=== PATIENT | female | born 1955 | race Caucasian/White ===

== ENCOUNTER → 2016-12-09 | Day surgery (SDC) | payer OTHER ==
[2016-12-03 15:21] VITALS: Ht 160 cm; Wt 81.8 kg
[~2016-12-09] VITALS: Ht 160 cm; Wt 81.8 kg
[~2016-12-09] MED LIST: ASCA500 PO; ATV/1 PO; CYAN100020 PO; FLUO20CA35 PO; LIDOCAINE HCL 2% 2 ML VIAL (20MG/ML) ONE; LINA1CAP PO; MIDAZOLAM HCL 1 MG/ML 2ML VIAL ONE; ONDANSETRON INJ 2 MG/ML 2 ML VIAL ONE; PANT40TA PO; PROPOFOL IV EMULSION 10 MG/ML 20 ML VIAL IV ONE; RISP0.258 PO; RISP0.5T10 PO; SUCR1TAB29 PO; TRAZ50TA35 PO
--- NOTE | 2016-12-09 12:56 | Endo History and Physical ---
History & Physical Date of Service: Dec 09, 2016. Chief Complaint: reflux Referring Physician: Dr. Joanne Harrington History of Present Illness 61 yo CF who presents for EGD secondary to GERD and dysphagia. Past Surgical History Hx Cardiac Surgery: No Hx Internal Defibrillator: No Hx Pacemaker: No Hx Abdominal Surgery: Yes (UTERINE ABLATION, D&C, YOVANI, TUBAL LIGATION) Hx of Implantable Prosthesis: No Hx Post-Op Nausea and Vomiting: Yes Hx Cancer Surgery: Yes (SKIN CANCER REMOVED FROM NOSE) Hx Thoracic Surgery: No Hx Orthopedic: Yes (LT/RT CTR) Hx Urinary Tract Surgery: No Family History None Social History Smoking Status: Current Every Day Smoker Hx Substance Use: No Hx Alcohol Use: No Allergies Coded Allergies: Ibuprofen (Verified Allergy, Unknown, CAUSES HEMORRHOID BLEEDING, 12/03/16) Current Medications Reported Home Medications Medications Dose Route/Sig Max Daily Dose Days Date Category Vitamin C (Ascorbic Acid) 500 Mg Tab 1 Tab PO QAM 12/03/16 Reported Vitamin B12 (Cyanocobalamin) 1,000 Mcg Tab 1 Tab PO QAM 12/03/16 Reported Trazodone (Trazodone HCl) 50 Mg Tab 50 Mg PO HS 12/03/16 Reported Ativan (Lorazepam) 1 Mg Tab 0.5 Tab PO Q6H PRN 12/03/16 Reported Protonix (Pantoprazole Sodium) 40 Mg Tab 40 Mg PO BID 12/03/16 Reported Carafate (Sucralfate) 1 Gm Tab 1 Gm PO TIDM 12/03/16 Reported Prozac (Fluoxetine HCl) 20 Mg Cap 2 Cap PO QAM 12/03/16 Reported Risperdal (Risperidone) 0.5 Mg Tab 0.5 Mg PO AFTERNOON 12/03/16 Reported Risperdal (Risperidone) 0.25 Mg Tab 0.25 Mg PO QAM 12/03/16 Reported Vital Signs Weight (Kilograms): 81.82 Height (Feet): 5 Height (Inches): 3 Date Time Temp Pulse Resp B/P Pulse Ox O2 Delivery O2 Flow Rate FiO2 12/09/16 11:55 36.9 66 20 152/89 93 Room Air Physical Exam General Appearance: WD/WN, no apparent distress Respiratory/Chest: Auscultation: breath sounds normal Cardiovascular: Heart Auscultation: RRR Abdomen: Bowel Sounds: normal Inspection & Palpation: soft, non-distended, no tenderness, guarding & rebound Assessment and Plan Assessment: 61 yo CF who presents for EGD secondary to GERD and dysphagia. Plan: Proceed with EGD.
--- NOTE | 2016-12-09 14:23 | GI REPORT ---
Procedure Date: 12/09/2016 1:24 PM Procedure: Upper GI endoscopy Indications: Dysphagia, Gastro-esophageal reflux disease Medicines: Monitored Anesthesia Care Complications: No immediate complications. Estimated Blood Loss: Estimated blood loss: none. Procedure: Pre-Anesthesia Assessment: - Prior to the procedure, a History and Physical was performed, and patient medications and allergies were reviewed. The patient's tolerance of previous anesthesia was also reviewed. The risks and benefits of the procedure and the sedation options and risks were discussed with the patient. All questions were answered, and informed consent was obtained. Prior Anticoagulants: The patient has taken no previous anticoagulant or antiplatelet agents. ASA Grade Assessment: II - A patient with mild systemic disease. After reviewing the risks and benefits, the patient was deemed in satisfactory condition to undergo the procedure. After obtaining informed consent, the endoscope was passed under direct vision. Throughout the procedure, the patient's blood pressure, pulse, and oxygen saturations were monitored continuously. The On-site loaner was introduced through the mouth, and advanced to the second part of duodenum. The upper GI endoscopy was accomplished without difficulty. The patient tolerated the procedure well. Findings: No endoscopic abnormality was evident in the esophagus to explain the patient's complaint of dysphagia. It was decided, however, to proceed with dilation of the entire esophagus. A guidewire was placed and the scope was withdrawn. Dilation was performed with a Savary dilator with no resistance at 48 Fr. Localized mild inflammation characterized by erythema was found in the gastric antrum. Biopsies were taken with a cold forceps for histology. The examined duodenum was normal. Impression: - No endoscopic esophageal abnormality to explain patient's dysphagia. Esophagus dilated. Dilated. - Gastritis. Biopsied. - Normal examined duodenum. Recommendation: - Resume previous diet. - Continue present medications. - Await pathology results. - Return to GI office as previously scheduled. Tad Martinez DO [place] 12/09/2016 2:22:48 PM This report has been signed electronically. Note Initiated On: 12/09/2016 1:24 PM I attest to the content of the Intraoperative Record and orders documented therein, exceptions below
--- NOTE | 2016-12-09 14:26 | Discharge Instructions ---
Endoscopy Patient Instructions Date / Procedure(s) Performed Dec 09, 2016. EGD Allergy Information Coded Allergies: Ibuprofen (Verified Allergy, Unknown, CAUSES HEMORRHOID BLEEDING, 12/03/16) Discharge Date / Findings Dec 09, 2016. Gastritis s/p biopsies Esophageal dilation to 16 mm Medication Instructions OK to resume all medications today as prescribed Reported Home Medications Medications Dose Route/Sig Max Daily Dose Days Date Category Vitamin C (Ascorbic Acid) 500 Mg Tab 1 Tab PO QAM 12/03/16 Reported Vitamin B12 (Cyanocobalamin) 1,000 Mcg Tab 1 Tab PO QAM 12/03/16 Reported Trazodone (Trazodone HCl) 50 Mg Tab 50 Mg PO HS 12/03/16 Reported Ativan (Lorazepam) 1 Mg Tab 0.5 Tab PO Q6H PRN 12/03/16 Reported Protonix (Pantoprazole Sodium) 40 Mg Tab 40 Mg PO BID 12/03/16 Reported Carafate (Sucralfate) 1 Gm Tab 1 Gm PO TIDM 12/03/16 Reported Prozac (Fluoxetine HCl) 20 Mg Cap 2 Cap PO QAM 12/03/16 Reported Risperdal (Risperidone) 0.5 Mg Tab 0.5 Mg PO AFTERNOON 12/03/16 Reported Risperdal (Risperidone) 0.25 Mg Tab 0.25 Mg PO QAM 12/03/16 Reported Provider Instructions Activity Restrictions - No exercising or heavy lifting for 24 hours. - Do not drink alcohol the day of the procedure. - Do not drive a car or operate machinery until the day after the procedure. - Do not make any important decisions or sign important papers in 24 hours after the procedure. Following Day: - Return to full activity which may include returning to work/school. Diet Start your diet with liquids and light foods (jello, soup, juice, toast). Then eat your usual diet if not nauseated. Treatment For Common After Affects For mild abdominal pain, bloating, or excessive gas: - Rest - Eat lightly - Lie on right side Follow-Up Information Follow-up with Dr. Joanne Harrington as scheduled Anesthesia Information What You Should Know You have had a procedure that required some medicine to reduce anxiety and discomfort. This treatment is called moderate sedation. After receiving the treatment, you may be sleepy, but you will be able to breathe on your own. The effects of the treatment may last for several hours. Follow these instructions along with Activity/Diet recommendations noted above: * Do NOT do anything where dizziness or clumsiness would be dangerous. * Rest quietly at home today, then you can be up and about tomorrow. * Have a responsible person stay with you the rest of today. * You may have had an I.V. today. If so, you may take the dressing off later today. Recommendations Call your doctor if: * Trouble breathing * Continuous vomiting for more than 24 hours * Temperature above 101 degrees * Severe abdominal pain or bloating * Pain not relieved by pain medicine ordered * There is increased drainage or redness from any incision * A large amount of rectal bleeding greater than 2-3 tablespoons. (If you had a polyp/s removed or have hemorrhoids, a small amount of blood - from the rectum is to be expected.) * You have any unanswered questions or concerns. IN THE EVENT OF A SERIOUS EMERGENCY, GO TO THE NEAREST EMERGENCY ROOM Your discharge instructions were prepared by provider Tad Stapleton. Patient Instructions Signature Page Elizabeth Mayorga Patient (or Guardian) Signature/Date: I have read and understand the instructions given to me by my caregivers. Caregiver/RN/Doctor Signature/Date: The above-named patient and/or guardian has received patient instructions on this date. + Original Patient Signature Page (only) stays with chart. Please make copy for patient.
--- NOTE | 2016-12-09 14:27 | Anesthesiology Progress Note ---
Anesthesia Post Op Note Date & Time Dec 09, 2016 at 14:26 Vital Signs Pain Intensity: 2 Vital Signs Past 12 Hours Date Time Temp Pulse Resp B/P Pulse Ox O2 Delivery O2 Flow Rate FiO2 12/09/16 14:15 66 16 131/82 94 Room Air 12/09/16 11:55 36.9 66 20 152/89 93 Room Air Notes Mental Status: alert / awake / arousable, participated in evaluation Pt Amnestic to Procedure: Yes Nausea / Vomiting: adequately controlled Pain: adequately controlled Airway Patency, RR, SpO2: stable & adequate BP & HR: stable & adequate Hydration State: stable & adequate Anesthetic Complications: no major complications apparent
[2016-12-09 14:45] VITALS: BP 169/100; PULSE 68; TEMP 36.9; O2SAT 94
== END | disposition home or self-care (01) ==
LOC: C.GI 11:19
PROVIDERS: ATTEND Internal Medicine
DX: R13.10 Dysphagia, unspecified (principal); K21.9 Gastro-esophageal reflux disease without esophagitis; K29.50 Unspecified chronic gastritis without bleeding; F41.9 Anxiety disorder, unspecified; F17.200 Nicotine dependence, unspecified, uncomplicated; Z68.32 Body mass index [BMI] 32.0-32.9, adult; Z90.89 Acquired absence of other organs; E66.9 Obesity, unspecified; Z98.51 Tubal ligation status; Z85.828 Personal history of other malignant neoplasm of skin; Z90.49 Acquired absence of other specified parts of digestive tract

== ENCOUNTER → 2017-04-16 | Outpatient (CLI) | payer OTHER ==
[~2017-04-16] MED LIST changes: -LIDOCAINE HCL 2% 2 ML VIAL (20MG/ML) ONE; -MIDAZOLAM HCL 1 MG/ML 2ML VIAL ONE; -ONDANSETRON INJ 2 MG/ML 2 ML VIAL ONE; -PROPOFOL IV EMULSION 10 MG/ML 20 ML VIAL IV ONE
[2017-04-16 13:37] LABS: BASO % 0.4 %; BASO ABS # 0.04 K/uL (0-0.2); COMPLETE YES; EOS % 1.9 %; HEMATOCRIT 40.1 % (37-47); IG% 0.1 %; LYMPH % 13.5 %; LYMPH ABS # 1.39 K/uL (1.2-3.4); MEAN CELL VOLUME 94.4 fL (80-100); MEAN CORPUSCULAR HEMOGLOBIN 31.3 pg (25-34); MEAN CORPUSCULAR HGB CONC 33.2 g/dl (32-36); MEAN PLATELET VOLUME 9.6 fL (7.4-10.4); MONO % 4.9 %; NEUT % 79.2 %; PLATELET COUNT 296 K/uL (130-400); RED BLOOD COUNT 4.25 M/uL (4.2-5.4); WHITE BLOOD COUNT 10.27 K/uL (4.8-10.8)
[2017-04-16 14:30] LABS: ALB/GLOB RATIO 0.9 (0.9-2); ALKALINE PHOSPHATASE 49 U/L (45-117); ALT/SGPT 18 U/L (12-78); AST/SGOT 14 U/L (15-37); BLOOD UREA NITROGEN 11 mg/dl (7-18); BUN/CREATININE RATIO 13.9 (10-20); CALCIUM 8.4 mg/dl (8.5-10.1); CARBON DIOXIDE 28 mmol/L (21-32); CHLORIDE 106 mmol/L (98-107); CHOLESTEROL 178 mg/dl (0-200); CHOLESTEROL/HDL RATIO 3.6; CREATININE 0.77 mg/dl (0.60-1.20); GLUCOSE 99 mg/dl (70-99); HDL CHOLESTEROL 50 mg/dl; LDL CHOLESTEROL CALCULATED 114 mg/dl; POTASSIUM 4.1 mmol/L (3.5-5.1); SODIUM 140 mmol/L (136-145); TRIGLYCERIDES 70 mg/dl (0-150); VERY LOW DENSITY LIPOPROT CALC 14 mg/dl
[2017-04-16 14:41] LABS: THYROID STIMULATING HORMONE 0.905 uIu/ml (0.300-4.500)
== END | disposition home or self-care (01) ==
LOC: C.LABMFLN 06:59
PROVIDERS: ATTEND Psychiatry & Neurology Geriatric Psychiatry
DX: Z51.81 Encounter for therapeutic drug level monitoring (principal); Z79.899 Other long term (current) drug therapy

== ENCOUNTER → 2017-05-27 | Day surgery (SDC) | payer OTHER ==
[2017-05-15 11:24] VITALS: Ht 160 cm; Wt 76.8 kg
[~2017-05-27] VITALS: Ht 160 cm; Wt 76.8 kg
[~2017-05-27] MED LIST changes: +LIDOCAINE HCL 2% 2 ML VIAL (20MG/ML) ONE; +PROPOFOL IV EMULSION 10 MG/ML 20 ML VIAL IV ONE; +SODIUM CHLORIDE 0.9% 500ML 500 ML IV ONE
[2017-05-27 15:01] VITALS: TEMP 36.9
--- NOTE | 2017-05-27 15:27 | Endo History and Physical ---
History & Physical Date of Service: May 27, 2017. Chief Complaint: Wt Loss, Ab pain Referring Physician: Joanne Harrington History of Present Illness 61 yo CF who presents for colonoscopy secondary to abdominal pain and weight loss. Past Surgical History Hx Cardiac Surgery: No Hx Internal Defibrillator: No Hx Pacemaker: No Hx Abdominal Surgery: Yes (UTERINE ABLATION, D&C, YOVANI, TUBAL LIGATION) Hx of Implantable Prosthesis: No Hx Post-Op Nausea and Vomiting: Yes Hx Cancer Surgery: Yes (SKIN CANCER REMOVED FROM NOSE) Hx Thoracic Surgery: No Hx Orthopedic: Yes (LT/RT CTR) Hx Urinary Tract Surgery: No Family History None Social History Smoking Status: Current Every Day Smoker Hx Substance Use: No Hx Alcohol Use: No Allergies Coded Allergies: Ibuprofen (Verified Allergy, Unknown, CAUSES HEMORRHOID BLEEDING, 05/15/17) Current Medications Reported Home Medications Medications Dose Route/Sig Max Daily Dose Days Date Category Linzess (Linaclotide) 145 Mcg Cap 1 Cap PO DAILY 05/27/17 Reported Vitamin C (Ascorbic Acid) 500 Mg Tab 1 Tab PO QAM 12/03/16 Reported Vitamin B12 (Cyanocobalamin) 1,000 Mcg Tab 1 Tab PO QAM 12/03/16 Reported Trazodone (Trazodone HCl) 50 Mg Tab 50 Mg PO HS 12/03/16 Reported Ativan (Lorazepam) 1 Mg Tab 0.5 Tab PO Q6H PRN 12/03/16 Reported Protonix (Pantoprazole Sodium) 40 Mg Tab 40 Mg PO BID 12/03/16 Reported Carafate (Sucralfate) 1 Gm Tab 1 Gm PO TIDM 12/03/16 Reported Prozac (Fluoxetine HCl) 20 Mg Cap 2 Cap PO QAM 12/03/16 Reported Risperdal (Risperidone) 0.5 Mg Tab 0.5 Mg PO AFTERNOON 12/03/16 Reported Risperdal (Risperidone) 0.25 Mg Tab 0.25 Mg PO QAM 12/03/16 Reported Vital Signs Weight (Kilograms): 76.82 Height (Feet): 5 Height (Inches): 3 Date Time Temp Pulse Resp B/P (MAP) Pulse Ox O2 Delivery O2 Flow Rate FiO2 05/27/17 15:01 36.9 84 18 109/72 (84) 100 Room Air Physical Exam General Appearance: WD/WN, no apparent distress Respiratory/Chest: Auscultation: breath sounds normal Cardiovascular: Heart Auscultation: RRR Abdomen: Bowel Sounds: normal Inspection & Palpation: soft, non-distended, no tenderness, guarding & rebound Assessment and Plan Assessment: 61 yo CF who presents for colonoscopy secondary to abdominal pain and weight loss. Plan: Proceed with colonoscopy.
--- NOTE | 2017-05-27 15:57 | Discharge Instructions ---
Endoscopy Patient Instructions Date / Procedure(s) Performed May 27, 2017. Colonoscopy Allergy Information Coded Allergies: Ibuprofen (Verified Allergy, Unknown, CAUSES HEMORRHOID BLEEDING, 05/15/17) Discharge Date / Findings May 27, 2017. Colon polyps Diverticulosis Internal hemorrhoids Medication Instructions OK to resume all medications today as prescribed Reported Home Medications Medications Dose Route/Sig Max Daily Dose Days Date Category Linzess (Linaclotide) 145 Mcg Cap 1 Cap PO DAILY 05/27/17 Reported Vitamin C (Ascorbic Acid) 500 Mg Tab 1 Tab PO QAM 12/03/16 Reported Vitamin B12 (Cyanocobalamin) 1,000 Mcg Tab 1 Tab PO QAM 12/03/16 Reported Trazodone (Trazodone HCl) 50 Mg Tab 50 Mg PO HS 12/03/16 Reported Ativan (Lorazepam) 1 Mg Tab 0.5 Tab PO Q6H PRN 12/03/16 Reported Protonix (Pantoprazole Sodium) 40 Mg Tab 40 Mg PO BID 12/03/16 Reported Carafate (Sucralfate) 1 Gm Tab 1 Gm PO TIDM 12/03/16 Reported Prozac (Fluoxetine HCl) 20 Mg Cap 2 Cap PO QAM 12/03/16 Reported Risperdal (Risperidone) 0.5 Mg Tab 0.5 Mg PO AFTERNOON 12/03/16 Reported Risperdal (Risperidone) 0.25 Mg Tab 0.25 Mg PO QAM 12/03/16 Reported Provider Instructions Activity Restrictions - No exercising or heavy lifting for 24 hours. - Do not drink alcohol the day of the procedure. - Do not drive a car or operate machinery until the day after the procedure. - Do not make any important decisions or sign important papers in 24 hours after the procedure. Following Day: - Return to full activity which may include returning to work/school. Diet Start your diet with liquids and light foods (jello, soup, juice, toast). Then eat your usual diet if not nauseated. Treatment For Common After Affects For mild abdominal pain, bloating, or excessive gas: - Rest - Eat lightly - Lie on right side Follow-Up Information Follow-up with Joanne Harrington as scheduled Anesthesia Information What You Should Know You have had a procedure that required some medicine to reduce anxiety and discomfort. This treatment is called moderate sedation. After receiving the treatment, you may be sleepy, but you will be able to breathe on your own. The effects of the treatment may last for several hours. Follow these instructions along with Activity/Diet recommendations noted above: * Do NOT do anything where dizziness or clumsiness would be dangerous. * Rest quietly at home today, then you can be up and about tomorrow. * Have a responsible person stay with you the rest of today. * You may have had an I.V. today. If so, you may take the dressing off later today. Recommendations Call your doctor if: * Trouble breathing * Continuous vomiting for more than 24 hours * Temperature above 101 degrees * Severe abdominal pain or bloating * Pain not relieved by pain medicine ordered * There is increased drainage or redness from any incision * A large amount of rectal bleeding greater than 2-3 tablespoons. (If you had a polyp/s removed or have hemorrhoids, a small amount of blood - from the rectum is to be expected.) * You have any unanswered questions or concerns. IN THE EVENT OF A SERIOUS EMERGENCY, GO TO THE NEAREST EMERGENCY ROOM Your discharge instructions were prepared by provider Tad Stapleton. Patient Instructions Signature Page Elizabeth Mayorga Patient (or Guardian) Signature/Date: I have read and understand the instructions given to me by my caregivers. Caregiver/RN/Doctor Signature/Date: The above-named patient and/or guardian has received patient instructions on this date. + Original Patient Signature Page (only) stays with chart. Please make copy for patient.
--- NOTE | 2017-05-27 16:01 | GI REPORT ---
Procedure Date: 05/27/2017 3:25 PM Procedure: Colonoscopy Indications: Generalized abdominal pain, Weight loss Medicines: Monitored Anesthesia Care Complications: No immediate complications. Estimated Blood Loss: Estimated blood loss: none. Procedure: Pre-Anesthesia Assessment: - Prior to the procedure, a History and Physical was performed, and patient medications and allergies were reviewed. The patient's tolerance of previous anesthesia was also reviewed. The risks and benefits of the procedure and the sedation options and risks were discussed with the patient. All questions were answered, and informed consent was obtained. Prior Anticoagulants: The patient has taken no previous anticoagulant or antiplatelet agents. ASA Grade Assessment: II - A patient with mild systemic disease. After reviewing the risks and benefits, the patient was deemed in satisfactory condition to undergo the procedure. After I obtained informed consent, the scope was passed under direct vision. Throughout the procedure, the patient's blood pressure, pulse, and oxygen saturations were monitored continuously. The scope was introduced through the anus and advanced to the terminal ileum. The colonoscopy was performed without difficulty. The patient tolerated the procedure well. The quality of the bowel preparation was good. The terminal ileum, ileocecal valve, appendiceal orifice, and rectum were photographed. Findings: Scattered small and large-mouthed diverticula were found in the entire colon. Three sessile polyps were found in the sigmoid colon. The polyps were 3 to 6 mm in size. These polyps were removed with a hot snare. Resection and retrieval were complete. Non-bleeding internal hemorrhoids were found during retroflexion. The hemorrhoids were small. Impression: - Diverticulosis in the entire examined colon. - Three 3 to 6 mm polyps in the sigmoid colon, removed with a hot snare. Resected and retrieved. - Non-bleeding internal hemorrhoids. Recommendation: - Resume previous diet. - Continue present medications. - Repeat colonoscopy for surveillance based on pathology results. - Return to primary care physician as previously scheduled. Tad Stapleton, DO 05/27/2017 4:01:07 PM This report has been signed electronically. Note Initiated On: 05/27/2017 3:25 PM I attest to the content of the Intraoperative Record and orders documented therein, exceptions below
--- NOTE | 2017-05-27 16:12 | Anesthesiology Progress Note ---
Anesthesia Post Op Note Date & Time May 27, 2017 at 16:12 Vital Signs Pain Intensity: 3 Vital Signs Past 12 Hours Date Time Temp Pulse Resp B/P (MAP) Pulse Ox O2 Delivery O2 Flow Rate FiO2 05/27/17 15:59 69 20 131/74 (93) 96 Room Air 05/27/17 15:01 36.9 84 18 109/72 (84) 100 Room Air Notes Mental Status: alert / awake / arousable, participated in evaluation Pt Amnestic to Procedure: Yes Nausea / Vomiting: adequately controlled Pain: adequately controlled Airway Patency, RR, SpO2: stable & adequate BP & HR: stable & adequate Hydration State: stable & adequate Anesthetic Complications: no major complications apparent
[2017-05-27 16:29] VITALS: BP 134/74; PULSE 63; O2SAT 93
== END | disposition home or self-care (01) ==
LOC: C.GI 14:32
PROVIDERS: ATTEND Internal Medicine
DX: R10.84 Generalized abdominal pain (principal); R63.4 Abnormal weight loss; D12.5 Benign neoplasm of sigmoid colon; K57.30 Diverticulosis of large intestine without perforation or abscess without bleeding; K64.8 Other hemorrhoids; F17.200 Nicotine dependence, unspecified, uncomplicated; Z85.828 Personal history of other malignant neoplasm of skin

== ENCOUNTER → 2017-05-29 | Outpatient (CLI) | payer OTHER ==
[~2017-05-29] MED LIST changes: -LIDOCAINE HCL 2% 2 ML VIAL (20MG/ML) ONE; -PROPOFOL IV EMULSION 10 MG/ML 20 ML VIAL IV ONE; -SODIUM CHLORIDE 0.9% 500ML 500 ML IV ONE
== END | disposition home or self-care (01) ==
LOC: C.PAPS 13:28
PROVIDERS: ATTEND Physician Assistant
DX: Z12.4 Encounter for screening for malignant neoplasm of cervix (principal)

== ENCOUNTER → 2017-09-08 | Outpatient (CLI) | payer OTHER ==
[~2017-09-08] MED LIST changes: -ASCA500 PO; -LINA1CAP PO; +POTASSIUM PO; -SUCR1TAB29 PO
[2017-09-08 18:39] LABS: PTT PATIENT 28.2 SECONDS (21.0-31.0)
== END | disposition home or self-care (01) ==
LOC: C.LABMFLN 16:12
PROVIDERS: ATTEND Physician Assistant
DX: Z01.818 Encounter for other preprocedural examination (principal)

== ENCOUNTER 2017-09-15 06:03 | Inpatient (IN) | payer OTHER ==
[2017-09-01 11:09] VITALS: BMI 27.0
--- NOTE | 2017-09-01 11:46 | PAT Medication Instructions ---
Service Date Sep 01, 2017. Current Home Medication List Cyanocobalamin (Vitamin B12), 1 TAB PO QAM Fluoxetine (Prozac), 2 CAP PO QAM Lorazepam (Ativan), 0.5 TAB PO Q6H PRN for Anxiety Pantoprazole (Protonix), 40 MG PO BID Risperidone (Risperdal), 0.25 MG PO QAM Risperidone (Risperdal), 0.5 MG PO AFTERNOON Trazodone Hcl (Trazodone), 50-100 MG PO HS [Potassium ], 99 MG PO QAM Medication Instructions For Your Scheduled Surgery - Hold the following medications the morning of surgery: [Potassium ], 99 MG PO QAM Cyanocobalamin (Vitamin B12), 1 TAB PO QAM - Take the following medications the morning of surgery with a sip of water: Pantoprazole (Protonix), 40 MG PO BID Risperidone (Risperdal), 0.25 MG PO QAM Lorazepam (Ativan), 0.5 TAB PO Q6H PRN for Anxiety (if needed) Fluoxetine (Prozac), 2 CAP PO QAM - Take the following medications as scheduled the night before surgery: Trazodone Hcl (Trazodone), 50-100 MG PO HS Risperidone (Risperdal), 0.5 MG PO AFTERNOON Lorazepam (Ativan), 0.5 TAB PO Q6H PRN for Anxiety (if needed) Pantoprazole (Protonix), 40 MG PO BID If you have any questions please call us at [phone] or [phone] or [phone]
--- NOTE | 2017-09-01 12:52 | DIAGNOSTIC IMAGING REPORT ---
CHEST 2 VIEWS ROUTINE HISTORY: Preop. COMPARISON: Chest CT 03/12/2016. FINDINGS: The heart is normal in size. No pleural effusions. No pneumothorax. Mild upper lobe predominant reticulonodular interstitial thickening remains unchanged. No new focal lung consolidations. No evidence for pulmonary edema. IMPRESSION: Stable mild chronic upper lobe predominant reticulonodular interstitial thickening. No new focal lung consolidations. Electronically signed by: Kenyon Ross M.D. 09/01/2017 12:50 PM Dictated Date/Time: 09/01/2017 12:48 PM
[2017-09-01 13:29] LABS: BASO % 0.3 %; BASO ABS # 0.03 K/uL (0-0.2); EOS % 0.3 %; EOS ABS # 0.03 K/uL (0-0.5); HEMOGLOBIN 15.1 g/dL (12.0-16.0); IG# 0.01 K/uL (0.00-0.02); LYMPH % 26.2 %; LYMPH ABS # 2.75 K/uL (1.2-3.4); MEAN CELL VOLUME 93.4 fL (80-100); MEAN CORPUSCULAR HEMOGLOBIN 32.1 pg (25-34); MEAN CORPUSCULAR HGB CONC 34.3 g/dl (32-36); MEAN PLATELET VOLUME 9.9 fL (7.4-10.4); MONO ABS # 0.74 K/uL (0.11-0.59); NEUT % 66.1 %; NEUT ABS # 6.95 K/uL (1.4-6.5); PLATELET COUNT 283 K/uL (130-400); RED CELL DISTRIBUTION WIDTH CV 14.5 % (11.5-14.5); RED CELL DISTRIBUTION WIDTH SD 49.9 fL (36.4-46.3); WHITE BLOOD COUNT 10.51 K/uL (4.8-10.8)
[2017-09-01 13:41] LABS: CREATININE 0.76 mg/dl (0.60-1.20); POTASSIUM 3.8 mmol/L (3.5-5.1)
[2017-09-15] VITALS (9 sets, daily range): BP systolic 100–143; BP diastolic 62–83; PULSE 60–97; TEMP 36.3–36.7; O2SAT 82–97; Ht 160 cm; Wt 70.3 kg
[~2017-09-15] VITALS: Ht 160 cm; Wt 70.3 kg
[~2017-09-15 06:03] MED LIST changes: +CEFAZOLIN 1000MG IV PUSH 5 ML IV SCH; +LACTATED RINGER'S 1000ML 1,000 ML IV SCH
[2017-09-15] MEDS ORDERED: VITACAP26 PO (06:17)
[2017-09-15] MEDS ORDERED: MIDAZOLAM HCL 1 MG/ML 2ML VIAL ONE (06:41)
[2017-09-15] MEDS ORDERED: FENTANYL CITRATE INJ 50 MCG/1 ML 2 ML VIAL ONE ×5 (06:41→09:51)
[2017-09-15] MEDS ORDERED: BACITRACIN 50000 UNIT VIAL ONE (07:00)
[2017-09-15] MEDS ORDERED: BUPIVACAINE/EPINEPHRINE 0.5% MPF 1:200,000 30 ML VIAL ONE (07:00)
--- NOTE | 2017-09-15 07:23 | History & Physical Bridge Note ---
H&P Re-Evaluation Bridge Note: I have examined the patient, reviewed the History & Physical and in the interval since the performance of the History & Physical I have noted the following changes of clinical significance: No changes noted
--- NOTE | 2017-09-15 07:24 | History and Physical ---
History & Physical Date Sep 15, 2017. Chief Complaint Back and leg pain History of Present Illness The patient is a 61 year old female with complaints of back and leg pain Additional History Hepatic Disease: No Endocrine Disorder: No Kidney Disease: No Hypertension: No Heart Disease: No Bleeding Tendencies: No Infectious Diseases: No Allergies Coded Allergies: Ibuprofen (Verified Allergy, Unknown, CAUSES HEMORRHOID BLEEDING, 09/15/17) Nickel (Verified Allergy, Unknown, RASH AND IRRITATION WITH NICKEL EARRINGS, 09/15/17) Home Medications Scheduled Cyanocobalamin (Vitamin B12), 1 TAB PO QAM Fluoxetine (Prozac), 2 CAP PO QAM Pantoprazole (Protonix), 40 MG PO BID Risperidone (Risperdal), 0.25 MG PO QAM Risperidone (Risperdal), 0.5 MG PO AFTERNOON Trazodone Hcl (Trazodone), 50-100 MG PO HS Vitamins C & E (Vitamin C), 2 CAP PO DAILY [Potassium ], 99 MG PO QAM Scheduled PRN Lorazepam (Ativan), 0.5 TAB PO Q6H PRN for Anxiety Physical Examination Skin: warm/dry, no rash Eyes: normal inspection, EOMI, sclerae normal ENT: normal ENT inspection, pharynx normal Head: normocephalic, atraumatic Neck: supple, no adenopathy, trachea midline Respiratory/Chest: lungs clear, normal breath sounds, no respiratory distress Cardiovascular: regular rate, rhythm, no edema, no murmur Abdomen / GI: normal bowel sounds, non tender Back: normal inspection Extremities: normal inspection, normal range of motion Neurologic/Psych: no motor/sensory deficits, alert, normal reflexes, oriented x 3 Diagnosis Lumbar spinal stenosis Plan of Treatment L2 to L5 decompression and fusion
[2017-09-15] MEDS ORDERED: HYDROmorphone INJ 2 MG/ML SYR/VIAL ONE ×3 (08:02→09:55)
[2017-09-15] MEDS ORDERED: FLOSEAL HEMOSTATIC MATRIX 10ML TOP ONE (09:35)
[2017-09-15] MEDS ORDERED: ROCURONIUM BROMIDE 10 MG/ML 5 ML VIAL IV ONE (09:36)
[2017-09-15] MEDS ORDERED: LIDOCAINE HCL 2% 2 ML VIAL (20MG/ML) ONE (09:36)
[2017-09-15] MEDS ORDERED: PROPOFOL IV EMULSION 10 MG/ML 20 ML VIAL IV ONE (09:36)
[2017-09-15] MEDS ORDERED: DEXAMETHASONE SOD INJ 4 MG/ML VIAL ONE (09:36)
[2017-09-15] MEDS ORDERED: ONDANSETRON INJ 2 MG/ML 2 ML VIAL ONE ×2 (09:36→09:57)
[2017-09-15] MEDS ORDERED: EpHEDrine SULFATE 50MG/5ML SYR ONE (09:57)
[2017-09-15] MEDS ORDERED: NEOSTIGMINE METHYLSULFATE 1 MG/ML 10ML VIAL ONE (09:57)
[2017-09-15] MEDS ORDERED: GLYCOPYRROLATE INJ 0.2 MG/ML VIAL ONE (09:57)
[2017-09-15] MEDS ORDERED: SODIUM CHLORIDE 0.9% 1000ML 1,000 ML IV SCH (10:08)
--- NOTE | 2017-09-15 10:08 | [facility] Operative Report ---
Operative Report Operative Date Sep 15, 2017. Pre-Operative Diagnosis Lumbar Spinal Stenosis Post-Operative Diagnosis Lumbar Spinal Stenosis Procedure(s) Performed #1 lumbar decompression medial facetectomies foraminotomies L2 3 L3 4 L4 5. #2 posterior spinal fusion L2 3 L3 4 L4 5. #3 patient posterior segmental instrumentation L2 to L5. #4 interbody fusion L3 4 L4 5. #5 placement peek cage 7 x 22 mm at L3 4 and 11 x 22 mm at L4 5. #6 placement of locally harvested morcellized autograft in the posterior gutters. #7 patient anesthesiologist sponge, mass graft in the posterior lateral gutters and osteotome and bone graft in the interbody spaces. Surgeon Dr. Whelan Acid Bleacher Surgeon(s) none Estimated Blood Loss 125 cc Findings Severe spinal stenosis Specimens none per surgeon Description of Procedure Patient was met with preoperatively case discussed all questions addressed. After informed consent obtained patient was taken to the operative suite underwent intubation and placed in a prone position on the Mino table on top of the Kevin frame. All bony prominences were well-padded I suspect to ensure no external pressure placed upon them. This point lumbar spines prepped and draped in normal sterile fashion. Sharp dissection with the assistance of Bovie cautery was performed onto an exposing the lamina and transverse processes of L2-L3 L4 5 bilaterally. From a caudal to cephalad fashion a complete laminectomy of all 4 L3 and L2 was performed dressings for lateral recess and foraminal stenosis. Pedicle screws and placed in L2-L3 L4-L5 bilaterally with the assistance of fluoroscopy and the properly sized chanell placed. Through a trans-foraminal approach and left complete discectomy of L4- L5 was performed and endplates curetted to subcortical bleeding bone in a 11 x 22 mm peek cage was then tapped into position. I then proceeded L3 4 and again through a trans-foraminal approach complete discectomy was performed endplates curetted to subcortical bleeding bone and a 7 x 11 mm peek Cage filled with osteal bone graft tapped into position. The rods were then locked and final position bilaterally. The transverse processes of L2-L3 L4-L5 bur to subcortical bleeding bone. Infuse sponges sponge mass graft locally harvested morcellized Was placed in the posterior lateral gutters. 15 round RASHID drain inserted. The incision was then closed with 1 Vicryl in the fascia 2-0 Vicryl subcutaneously and 4-0 Monocryl for final skin closure Steri-Strips dressings placed. Patient was taken to PACU stable condition. I attest to the content of the Intraoperative Record and any orders documented therein. Any exceptions are noted below.
--- NOTE | 2017-09-15 10:11 | DIAGNOSTIC IMAGING REPORT ---
LUMBAR SPINE, INTRAOPERATIVE FLUOROSCOPY HISTORY: L2-L5 decompression and fusion. FLUOROSCOPY TIME: 26 seconds. FINDINGS: Intraoperative fluoroscopy was provided for the lumbar spine. 2 fluoroscopic spot images were obtained. L2-L5 posterior decompression and fusion with pedicle screws and rods. The hardware appears intact. IMPRESSION: Fluoroscopy provided for a L2-L5 posterior decompression and fusion.. Electronically signed by: Kenyon Ross M.D. 09/15/2017 10:09 AM Dictated Date/Time: 09/15/2017 10:09 AM
[2017-09-15] MEDS ORDERED: LABETALOL HCL IV 5 MG/ML 20ML IV PRN (10:15)
[2017-09-15] MEDS ORDERED: MAGNESIUM HYDROXIDE SUSP 30 ML UDC PO PRN (10:15)
[2017-09-15] MEDS ORDERED: EpHEDrine SULFATE INJ 50 MG/ML AMP IV PRN (10:15)
[2017-09-15] MEDS ORDERED: MEPERIDINE HCL 25 MG/ML CARP IV PRN (10:15)
[2017-09-15] MEDS ORDERED: ACETAMINOPHEN 500 MG TAB PO PRN (10:15)
[2017-09-15] MEDS ORDERED: BISACODYL 10 MG SUPP PR PRN (10:15)
[2017-09-15] MEDS ORDERED: LORAZEPAM INJ 0.5 MG in SYRINGE 0.75 ML IV PRN (10:15)
[2017-09-15] MEDS ORDERED: DO NOT ADMINISTER PNEUMOCOCCAL VACCINE PRN (10:15)
[2017-09-15] MEDS ORDERED: FENTANYL CITRATE INJ 50 MCG/1 ML 2 ML VIAL IV PRN (10:15)
[2017-09-15] MEDS ORDERED: METOCLOPRAMIDE HCL INJ 5 MG/ML 2 ML VIAL IV PRN (10:15)
[2017-09-15] MEDS ORDERED: ACETAMINOPHEN IV 100 ML IV PRN (10:15)
[2017-09-15] MEDS ORDERED: HYDROmorphone INJ 1 MG/ML SYR IV PRN (10:15)
[2017-09-15] MEDS ORDERED: ALUMINUM/MAGNESIUM SUSP 30 ML UDC PO PRN (10:15)
[2017-09-15] MEDS ORDERED: PROMETHAZINE HCL INJ 12.5 MG in SODIUM CHLORIDE 0.9% 50ML 50 ML IV PRN (10:15)
[2017-09-15] MEDS ORDERED: hydrOXYzine HCL 25 MG TAB PO PRN (10:15)
[2017-09-15] MEDS ORDERED: DO NOT ADMINISTER FLU VACCINE PRN (10:15)
[2017-09-15] MEDS ORDERED: SOD PHOSPHATE/SOD BIPHOSPHATE ENEMA 132 ML BTL PR PRN (10:15)
[2017-09-15] MEDS ORDERED: ATROPINE SULFATE 0.1 MG/ML 5ML SYR IV PRN (10:15)
[2017-09-15] MEDS ORDERED: ONDANSETRON INJ 2 MG/ML 2 ML VIAL IV PRN ×2 (10:15)
[2017-09-15] MEDS ORDERED: FAMOTIDINE 20 MG TAB PO PRN (10:15)
[2017-09-15] MEDS ORDERED: NALOXONE HCL 0.4 MG/1 ML VIAL/CARP IV PRN ×2 (10:15)
[2017-09-15] MEDS ORDERED: HYDROmorphone HCL 0.5MG/ML 50 ML CASSETTE ONE (10:23)
[2017-09-15] MEDS: HYDROmorphone HCL 0.5MG/ML 50 ML CASSETTE IV PRN ×2 (12:36→23:06)
[2017-09-15] MEDS: SODIUM CHLORIDE 0.9% 1000ML 1,000 ML IV SCH ×2 (13:28→19:16)
[2017-09-15] MEDS ORDERED: RISPERIDONE 0.5 MG TAB PO SCH (14:00)
[2017-09-15] MEDS: CEFAZOLIN IV 1,000 MG in SYRINGE 0 ML IV SCH (19:09)
[2017-09-15] MEDS: TRAZODONE HCL 50 MG TAB PO SCH (21:23)
[2017-09-15] MEDS: DOCUSATE SODIUM/SENNA 50/8.6MG TAB PO SCH (21:24)
[2017-09-15] MEDS: PANTOprazole SOD 40 MG TAB PO SCH (21:24)
[2017-09-16] VITALS: O2SAT 93
[2017-09-16] MEDS: SODIUM CHLORIDE 0.9% 1000ML 1,000 ML IV SCH (02:00)
[2017-09-16] MEDS: CEFAZOLIN IV 1,000 MG in SYRINGE 0 ML IV SCH (02:00)
[2017-09-16 03:25] VITALS: BP 128/76; PULSE 74; TEMP 36.6; O2SAT 97
[2017-09-16] MEDS ORDERED: DC PCA ONE (06:00)
[2017-09-16] MEDS ORDERED: NURSING VERBAL MED ORDER ONE ×2 (06:15→09:30)
[2017-09-16 06:58] LABS: BASO % 0.1 %; BASO ABS # 0.01 K/uL (0-0.2); EOS % 0.1 %; EOS ABS # 0.01 K/uL (0-0.5); HEMATOCRIT 36.6 % (37-47); HEMOGLOBIN 12.1 g/dL (12.0-16.0); IG# 0.07 K/uL (0.00-0.02); LYMPH % 11.2 %; LYMPH ABS # 1.79 K/uL (1.2-3.4); MEAN CELL VOLUME 94.3 fL (80-100); MEAN CORPUSCULAR HEMOGLOBIN 31.2 pg (25-34); MEAN CORPUSCULAR HGB CONC 33.1 g/dl (32-36); MEAN PLATELET VOLUME 9.6 fL (7.4-10.4); MONO % 9.3 %; MONO ABS # 1.49 K/uL (0.11-0.59); NEUT % 78.9 %; NEUT ABS # 12.58 K/uL (1.4-6.5); PLATELET COUNT 285 K/uL (130-400); RED CELL DISTRIBUTION WIDTH CV 14.5 % (11.5-14.5); RED CELL DISTRIBUTION WIDTH SD 49.5 fL (36.4-46.3); WHITE BLOOD COUNT 15.95 K/uL (4.8-10.8)
[2017-09-16 07:29] VITALS: BP 129/81; PULSE 72; TEMP 36.5; O2SAT 94
[2017-09-16 07:30] LABS: CALCIUM 8.8 mg/dl (8.5-10.1); CREATININE 0.49 mg/dl (0.60-1.20); POTASSIUM 3.6 mmol/L (3.5-5.1)
[2017-09-16] MEDS: OXYCODONE HCL IR 5 MG TAB (IMMEDIATE RELEASE) PO PRN ×4 (07:33→23:53)
[2017-09-16] MEDS: FLUOXETINE HCL 20 MG CAP PO SCH (07:34)
[2017-09-16] MEDS: PANTOprazole SOD 40 MG TAB PO SCH ×2 (07:34→20:17)
[2017-09-16] MEDS: RISPERIDONE 0.5 MG TAB PO SCH ×2 (08:48→15:38)
[2017-09-16] MEDS ORDERED: RXC5 PO (10:51)
--- NOTE | 2017-09-16 10:52 | Discharge Instructions ---
Discharge Instructions Date of Service Sep 16, 2017. Admission Reason for Admission: Lumbar Spinal Stenosis Discharge Discharge Diagnosis / Problem: lumbar stenosis Discharge Goals Goal(s): Improve function Activity Recommendations Activity Limitations: per Instructions/Follow-up section . Instructions / Follow-Up Instructions / Follow-Up ACTIVITY RECOMMENDATIONS: SELF CARE INSTRUCTIONS AFTER THORACIC/LUMBAR FUSIONS 1. You may walk to your tolerance. It is good exercise for your legs and back. Expect some back and intermittent leg aches and pains. 2. You may perform "counter-top" level activities (make a sandwich, maris with a project, etc.). 3. No bending or lifting of more than 10 pounds or back twisting of any nature (roll like a log when turning in bed). 4. You may ride in a car for 20-30 minutes at a time. No driving until after your first visit with your doctor. 5. Frequent changes of position and restricting sitting to 30 minutes at a time will help limit the amount of back spasms and stiffness you may experience. 6. You may discontinue the use of ambulatory aids (cane, crutches, etc.) once your strength and confidence allow. 7. You may insurance analyst the shower and let water strike your incision when you arrive home at least once daily. Do not take a tub bath, sit in a hot tub or go into a swimming pool until after your first recheck in the office. SPECIAL CARE INSTRUCTIONS: VERY IMPORTANT TO READ AND REVIEW A. Your surgical incision has been closed with a cosmetic suture under the skin that will dissolve in about 6 weeks. In 14 days, you can use a pair of clean scissors and cut the suture that is left outside of the skin at the ends of your incision. 1. The small skin tapes can be removed 7 days after surgery if they have not fallen off by that point. 2. You may keep the wound open to air as much as possible to promote healing after post-op day number 5 unless told otherwise by your doctor. 3. If you think the wound looks like it is becoming infected (redness or worsening drainage) and/or you are experiencing fever, chill or worsening back pain and muscle spasms, contact the office so that we may evaluate you as soon as possible. B. Complications are uncommon, but please contact us if you have any signs or symptoms of: 1. wound infection (fever higher than 102.5 degrees F, redness, separation of wound, drainage, or increasing pain from the incision) 2. blood clots in legs (pain, swelling, redness and warmth in legs) 3. urinary tract infection (fever higher than 102.5 degrees F, burning upon urination or increased frequency of urination) 4. nerve problems (inability to walk on your toes or heels, numbness, loss of bowel or bladder control) 5. any other symptoms that concern you C. Please call the office at if you have any concerns or questions about your operation or recovery. D. No smoking! Smoking drastically decreases the chance of a solid fusion. E. Do not take any anti-inflammatory medications (Indocin, Advil, Motrin, Aspirin, Naprosyn, etc.) as these may inhibit the chance of a solid fusion. Tylenol is okay to take for pain. MANAGING PAIN AFTER SPINAL SURGERY 1. Narcotic medication is intended for short-term use and will be provided for surgical pain. Surgical pain usually lasts for a period of 4-6 weeks. Narcotic medication includes Percocet, Vicodin, Darvocet, Tylenol #3 or Lortab. 2. Longer-term pain is more appropriately treated with non-narcotic medication such as Tylenol ES. 3. Muscle spasm is not appropriately treated with narcotics. Muscle relaxers such as Soma, Flexeril or Skelaxin can be used along with Tylenol ES. 4. Remember that we all live with some "aches and pains". This is not unusual or uncommon after an injury or as we get older. a. Back pain is expected and may include muscle spasms for 4 to 6 weeks after surgery. The pain should gradually improve. If the pain worsens for no apparent reason, please contact the office. b. Intermittent leg pain may also be experienced and should not be concerned about unless it worsens for no apparent reason. If so, please contact the office. 5. We will provide appropriate medication within the normal guidelines of their prescribed use. We will also be very cautious and aware of potential abuse and extended duration of patients' medication needs. a. Pain medications are for your comfort and to assist with sleep and rest so that the tissue can heal. They are not provided in order to return to normal activity and should not be used through the day. To do so or worsening pain at night can result from ongoing tissue damage and development of tolerance to the prescribed medicine. 6. Please allow 2-3 days to process refills. Prescriptions will not be mailed but must be picked up at the office. FOLLOW UP VISIT: Keep your scheduled follow-up appointment. Any questions, please call the office at . Current Hospital Diet Patient's current hospital diet: Regular Diet Discharge Diet Recommended Diet: Regular Diet Procedures Procedures Performed: #1 lumbar decompression medial facetectomies foraminotomies L2 3 L3 4 L4 5. #2 posterior spinal fusion L2 3 L3 4 L4 5. #3 patient posterior segmental instrumentation L2 to L5. #4 interbody fusion L3 4 L4 5. #5 placement peek cage 7 x 22 mm at L3 4 and 11 x 22 mm at L4 5. #6 placement of locally harvested morcellized autograft in the posterior gutters. #7 patient anesthesiologist sponge, mass graft in the posterior lateral gutters and osteotome and bone graft in the interbody spaces. Pending Studies Studies pending at discharge: no Medical Emergencies . Who to Call and When: Medical Emergencies: If at any time you feel your situation is an emergency, please call 911 immediately. . Non-Emergent Contact Non-Emergency issues call your: Primary Care Provider . "Provider Documentation" section prepared by Daniel Whelan. . VTE Core Measure Inpt VTE Proph given/why not?: Sameer Allen, [facility]
--- NOTE | 2017-09-16 12:55 | Anesthesiology Progress Note ---
Anesthesia Post Op Note Date & Time Sep 16, 2017 at 12:52 Vital Signs Pain Intensity: 8.0 Vital Signs Past 12 Hours Date Time Temp Pulse Resp B/P (MAP) Pulse Ox O2 Delivery O2 Flow Rate FiO2 09/16/17 09:36 Room Air 09/16/17 07:29 36.5 72 19 129/81 (97) 94 Room Air 09/16/17 03:25 36.6 74 16 128/76 (93) 97 Nasal Cannula 2.0 Notes Mental Status: alert / awake / arousable, participated in evaluation Pt Amnestic to Procedure: Yes Nausea / Vomiting: adequately controlled Pain: adequately controlled Airway Patency, RR, SpO2: stable & adequate BP & HR: stable & adequate Hydration State: stable & adequate Awake, alert, pain manageable with medication. Rates as 7. VSS. No c/o with anesthesia service.
--- NOTE | 2017-09-16 13:27 | Progress Note ---
Progress Note Date of Service Sep 16, 2017. Progress Note Patient's pain is controlled. She states her leg pain is improved. Vital signs are stable. RASHID drain decreasing appropriate. An exam she is in chair at bedside. She has excellent strength testing. Assessment status post multilevel lumbar decompression fusion implant this time we'll continue physical therapy and consider possible home Thursday with home health if covered by her insurance.
[2017-09-16] MEDS: HYDROmorphone INJ 0.5 MG/0.5 ML SYR IV PRN (14:18)
[2017-09-16 15:00] VITALS: BP 147/83; PULSE 71; TEMP 36.9; O2SAT 92
[2017-09-16] MEDS: LORAZEPAM 0.5 MG TAB PO PRN ×2 (19:08→20:17)
[2017-09-16] MEDS: TRAZODONE HCL 50 MG TAB PO SCH (20:17)
[2017-09-16] MEDS: DOCUSATE SODIUM/SENNA 50/8.6MG TAB PO SCH (20:17)
[2017-09-16 23:00] VITALS: BP 129/87; PULSE 94; TEMP 37.1; O2SAT 95
[2017-09-17] MEDS: OXYCODONE HCL IR 5 MG TAB (IMMEDIATE RELEASE) PO PRN ×4 (04:14→20:23)
[2017-09-17] MEDS: POLYETHYLENE (MIRALAX) 17 GM PACK PO SCH ×3 (05:34→17:30)
[2017-09-17 07:11] VITALS: BP 149/81; PULSE 84; TEMP 36.8; O2SAT 91
[2017-09-17] MEDS: RISPERIDONE 0.5 MG TAB PO SCH ×2 (07:50→13:36)
[2017-09-17] MEDS: FLUOXETINE HCL 20 MG CAP PO SCH (07:50)
[2017-09-17] MEDS: PANTOprazole SOD 40 MG TAB PO SCH ×2 (07:50→20:25)
[2017-09-17] MEDS: HYDROmorphone INJ 1 MG/ML SYR IV PRN ×4 (07:54→21:19)
--- NOTE | 2017-09-17 12:08 | Progress Note ---
Progress Note Date of Service Sep 17, 2017. Progress Note Patient's pain is controlled. She feels her leg pain is improved. She is tolerating physical therapy well. Vital signs are stable. RASHID drain decreasing appropriately. Assessment status post lumbar decompression fusion. Kalyn this time will continue with intubation as tolerated anticipate home tomorrow.
[2017-09-17 15:07] VITALS: BP 138/79; PULSE 73; TEMP 36.9; O2SAT 93
[2017-09-17] MEDS: LORAZEPAM 0.5 MG TAB PO PRN (19:42)
[2017-09-17] MEDS: DOCUSATE SODIUM/SENNA 50/8.6MG TAB PO SCH (20:24)
[2017-09-17] MEDS: TRAZODONE HCL 50 MG TAB PO SCH (20:25)
[2017-09-17 23:55] VITALS: BP 133/84; PULSE 81; TEMP 36.9; O2SAT 93
[2017-09-18] MEDS: POLYETHYLENE (MIRALAX) 17 GM PACK PO SCH ×3 (00:08→11:18)
[2017-09-18] MEDS: OXYCODONE HCL IR 5 MG TAB (IMMEDIATE RELEASE) PO PRN ×4 (00:12→15:05)
[2017-09-18] MEDS: HYDROmorphone INJ 0.5 MG/0.5 ML SYR IV PRN ×3 (03:20→12:21)
[2017-09-18 07:17] VITALS: BP 115/75; PULSE 82; TEMP 36.7; O2SAT 93
[2017-09-18] MEDS: FLUOXETINE HCL 20 MG CAP PO SCH (07:57)
[2017-09-18] MEDS: RISPERIDONE 0.5 MG TAB PO SCH ×2 (07:58→15:05)
[2017-09-18] MEDS: PANTOprazole SOD 40 MG TAB PO SCH (07:58)
--- NOTE | 2017-09-18 13:32 | Discharge Summary ---
Orthopedic Discharge Summary Admission Date/Reason Sep 15, 2017 at 07:32 Lumbar Spinal Stenosis. Discharge Date/Disposition Sep 18, 2017 Home with services Diagnosis Principal Diagnosis: Lumbar spinal stenosis Admission Physical Exam As per Admitting History & Physical. Hospital Course Patient underwent lumbar decompression and fusion. She tolerated this well was taken to the orthopedic floor postoperative. Postoperative day #1 she was up and amatory progress to postoperative day #2. Postoperative day #3 she was discharged home. Discharge orders and instruction can be found on the chart for further review. Discharge Instructions Please refer to the electronic Patient Visit Report (Discharge Instructions) for additional information.
[2017-09-18 15:57] VITALS: BP 149/92; PULSE 78; TEMP 36.8; O2SAT 93
[2017-09-18 16:44] VITALS: BP 149/92; PULSE 78; TEMP 36.8; O2SAT 93
--- NOTE | 2017-09-22 09:46 | Anesthesiology Progress Note ---
Anesthesia Post Op Note Date & Time Sep 22, 2017 at 09:44 Vital Signs Pain Intensity: 5.0 Notes Mental Status: alert / awake / arousable, participated in evaluation Pt Amnestic to Procedure: Yes Nausea / Vomiting: adequately controlled Pain: adequately controlled Airway Patency, RR, SpO2: stable & adequate BP & HR: stable & adequate Hydration State: stable & adequate Anesthetic Complications: no major complications apparent Review of EMR at this time indicates that pt was discharged without anesthesia related complaints or complications.
== END 2017-09-18 17:33 | disposition home health service (06) | DRG 455 ==
LOC: C.ACU 06:03 → C.3E 07:32 → ENRESERV 12:15
PROVIDERS: ADMIT Orthopaedic Surgery Orthopaedic Surgery of the Spine; ATTEND Orthopaedic Surgery Orthopaedic Surgery of the Spine
PROC: 0SG1071 Fusion of 2 or more Lumbar Vertebral Joints with Autologous Tissue Substitute, Posterior Approach, Posterior Column, Open Approach (ICD-10-PCS; principal; 2017-09-15 07:45)
PROC: 0SG10AJ Fusion of 2 or more Lumbar Vertebral Joints with Interbody Fusion Device, Posterior Approach, Anterior Column, Open Approach (ICD-10-PCS; principal; 2017-09-15 07:45)
PROC: 0ST20ZZ Resection of Lumbar Vertebral Disc, Open Approach (ICD-10-PCS; principal; 2017-09-15 07:45)
DX: M48.061 Spinal stenosis, lumbar region without neurogenic claudication (principal); Z79.899 Other long term (current) drug therapy

== ENCOUNTER → 2017-11-12 | Outpatient (CLI) | payer OTHER ==
[~2017-11-12] MED LIST changes: -CEFAZOLIN 1000MG IV PUSH 5 ML IV SCH; -LACTATED RINGER'S 1000ML 1,000 ML IV SCH; +RXC5 PO; +VITACAP26 PO
[2017-11-12 13:09] LABS: BASO % 0.6 %; BASO ABS # 0.04 K/uL (0-0.2); EOS % 0.6 %; EOS ABS # 0.04 K/uL (0-0.5); HEMATOCRIT 41.5 % (37-47); HEMOGLOBIN 13.7 g/dL (12.0-16.0); IG# 0.01 K/uL (0.00-0.02); LYMPH ABS # 2.12 K/uL (1.2-3.4); MEAN CELL VOLUME 93.9 fL (80-100); MONO % 8.6 %; MONO ABS # 0.61 K/uL (0.11-0.59); NEUT % 60.1 %; NEUT ABS # 4.24 K/uL (1.4-6.5); PLATELET COUNT 304 K/uL (130-400); RED CELL DISTRIBUTION WIDTH CV 14.8 % (11.5-14.5); RED CELL DISTRIBUTION WIDTH SD 50.4 fL (36.4-46.3); WHITE BLOOD COUNT 7.06 K/uL (4.8-10.8)
[2017-11-12 14:19] LABS: ALBUMIN 3.9 gm/dl (3.4-5.0); ALT/SGPT 14 U/L (12-78); BLOOD UREA NITROGEN 8 mg/dl (7-18); CALCIUM 9.1 mg/dl (8.5-10.1); CARBON DIOXIDE 28 mmol/L (21-32); CREATININE 0.65 mg/dl (0.60-1.20); GLUCOSE 94 mg/dl (70-99); LIPASE 216 U/L (73-393); POTASSIUM 3.6 mmol/L (3.5-5.1); SODIUM 135 mmol/L (136-145)
[2017-11-12 14:22] LABS: ALKALINE PHOSPHATASE 57 U/L (45-117); AST/SGOT 13 U/L (15-37); TOTAL PROTEIN 7.2 gm/dl (6.4-8.2)
== END | disposition home or self-care (01) ==
LOC: C.LABMFLN 10:49
PROVIDERS: ATTEND Registered Nurse
DX: R11.2 Nausea with vomiting, unspecified (principal); R63.4 Abnormal weight loss

== ENCOUNTER → 2018-01-05 | Day surgery (SDC) | payer OTHER ==
[2017-12-23 15:24] VITALS: Ht 160 cm; Wt 68.2 kg
[~2018-01-05] VITALS: Ht 160 cm; Wt 68.2 kg
[~2018-01-05] MED LIST changes: +ACET-1256 PO; +ASCO10003 PO; +ATROPINE SULFATE 0.1 MG/ML 5ML SYR IV PRN; +DSY100 PO; +EpHEDrine SULFATE INJ 50 MG/ML AMP IV PRN; +FENTANYL CITRATE INJ 50 MCG/1 ML 2 ML VIAL ONE; -FLUO20CA35 PO; +HYDR25CA PO; +LIDOCAINE HCL 2% 2 ML VIAL (20MG/ML) ONE; +MIDAZOLAM HCL 1 MG/ML 2ML VIAL ONE; +ONDANSETRON INJ 2 MG/ML 2 ML VIAL ONE; +PARO10TA4 PO; -POTASSIUM PO; +PROPOFOL IV EMULSION 10 MG/ML 20 ML VIAL ONE; +QUET1TAB91 PO; -RISP0.258 PO; -RXC5 PO; -TRAZ50TA35 PO; -VITACAP26 PO
--- NOTE | 2018-01-05 08:49 | Endo History and Physical ---
History & Physical Date of Service: January 05, 2018. Chief Complaint: abnormal CT and weight loss Referring Physician: Dr. Joanne Harrington History of Present Illness 62 yo CF who presents for colonoscopy secondary to abnormal CT scan and abnormal weight loss. Past Surgical History Hx Cardiac Surgery: No Hx Internal Defibrillator: No Hx Pacemaker: No Hx Abdominal Surgery: Yes (UTERINE ABLATION, D&C, YOVANI, TUBAL LIGATION) Hx Post-Op Nausea and Vomiting: Yes Hx Cancer Surgery: Yes (SKIN CANCER REMOVED FROM NOSE) Hx Thoracic Surgery: No Hx Orthopedic: Yes (LT/RT CTR, B/L HANDS TRIGGER THUMB, CERVICAL FUSION) Hx Urinary Tract Surgery: No Social History Smoking Status: Current Some Day Smoker Hx Substance Use: No Hx Alcohol Use: No Allergies Coded Allergies: Ibuprofen (Verified Allergy, Unknown, CAUSES HEMORRHOID BLEEDING, 12/23/17) Nickel (Verified Allergy, Unknown, RASH AND IRRITATION WITH NICKEL EARRINGS, 12/23/17) Current Medications Reported Home Medications Medications Dose Route/Sig Max Daily Dose Days Date Category Vistaril (Hydroxyzine Pamoate) 25 Mg Cap 1 Cap PO TID 30 01/05/18 Reported Risperdal (Risperidone) 0.5 Mg Tab 0.5 Mg PO BID 01/05/18 Reported Tylenol (Acetaminophen) 500 Mg Tab 1,000 Mg PO BID 12/23/17 Reported Paroxetine Hcl 10 Mg Tab 1 Tab PO QPM 12/23/17 Reported Vitamin C (Ascorbic Acid) 1,000 Mg Tab 1 Tab PO DAILY 12/23/17 Reported Trazodone HCl 100 Mg Tab 150 Tab PO HS 12/23/17 Reported Vitamin B12 (Cyanocobalamin) 1,000 Mcg Tab 1 Tab PO QAM 12/03/16 Reported Protonix (Pantoprazole Sodium) 40 Mg Tab 40 Mg PO BID 12/03/16 Reported Vital Signs Weight (Kilograms): 68.18 Height (Feet): 5 Height (Inches): 3 Date Time Temp Pulse Resp B/P (MAP) Pulse Ox O2 Delivery O2 Flow Rate FiO2 01/05/18 08:42 36.6 85 20 132/88 (103) 95 Room Air Physical Exam General Appearance: WD/WN, no apparent distress Respiratory/Chest: Auscultation: breath sounds normal Cardiovascular: Heart Auscultation: RRR Abdomen: Bowel Sounds: normal Inspection & Palpation: soft, non-distended, no tenderness, guarding & rebound Assessment and Plan Assessment: 62 yo CF who presents for colonoscopy secondary to abnormal CT scan and abnormal weight loss. Plan: Proceed with colonoscopy.
--- NOTE | 2018-01-05 09:40 | Discharge Instructions ---
Endoscopy Patient Instructions Date / Procedure(s) Performed January 05, 2018. Colonoscopy Allergy Information Coded Allergies: Ibuprofen (Verified Allergy, Unknown, CAUSES HEMORRHOID BLEEDING, 12/23/17) Nickel (Verified Allergy, Unknown, RASH AND IRRITATION WITH NICKEL EARRINGS, 12/23/17) Discharge Date / Findings January 05, 2018. Colon polyp Diverticulosis Internal hemorrhoids Medication Instructions OK to resume all medications today as prescribed Reported Home Medications Medications Dose Route/Sig Max Daily Dose Days Date Category Vistaril (Hydroxyzine Pamoate) 25 Mg Cap 1 Cap PO TID 30 01/05/18 Reported Risperdal (Risperidone) 0.5 Mg Tab 0.5 Mg PO BID 01/05/18 Reported Tylenol (Acetaminophen) 500 Mg Tab 1,000 Mg PO BID 12/23/17 Reported Paroxetine Hcl 10 Mg Tab 1 Tab PO QPM 12/23/17 Reported Vitamin C (Ascorbic Acid) 1,000 Mg Tab 1 Tab PO DAILY 12/23/17 Reported Trazodone HCl 100 Mg Tab 150 Tab PO HS 12/23/17 Reported Vitamin B12 (Cyanocobalamin) 1,000 Mcg Tab 1 Tab PO QAM 12/03/16 Reported Protonix (Pantoprazole Sodium) 40 Mg Tab 40 Mg PO BID 12/03/16 Reported Provider Instructions Activity Restrictions - No exercising or heavy lifting for 24 hours. - Do not drink alcohol the day of the procedure. - Do not drive a car or operate machinery until the day after the procedure. - Do not make any important decisions or sign important papers in 24 hours after the procedure. Following Day: - Return to full activity which may include returning to work/school. Diet Start your diet with liquids and light foods (jello, soup, juice, toast). Then eat your usual diet if not nauseated. Treatment For Common After Affects For mild abdominal pain, bloating, or excessive gas: - Rest - Eat lightly - Lie on right side Follow-Up Information Follow-up with Dr. Joanne Harrington as scheduled Anesthesia Information What You Should Know You have had a procedure that required some medicine to reduce anxiety and discomfort. This treatment is called moderate sedation. After receiving the treatment, you may be sleepy, but you will be able to breathe on your own. The effects of the treatment may last for several hours. Follow these instructions along with Activity/Diet recommendations noted above: * Do NOT do anything where dizziness or clumsiness would be dangerous. * Rest quietly at home today, then you can be up and about tomorrow. * Have a responsible person stay with you the rest of today. * You may have had an I.V. today. If so, you may take the dressing off later today. Recommendations Call your doctor if: * Trouble breathing * Continuous vomiting for more than 24 hours * Temperature above 101 degrees * Severe abdominal pain or bloating * Pain not relieved by pain medicine ordered * There is increased drainage or redness from any incision * A large amount of rectal bleeding greater than 2-3 tablespoons. (If you had a polyp/s removed or have hemorrhoids, a small amount of blood - from the rectum is to be expected.) * You have any unanswered questions or concerns. IN THE EVENT OF A SERIOUS EMERGENCY, GO TO THE NEAREST EMERGENCY ROOM Your discharge instructions were prepared by provider Tad Stapleton. Patient Instructions Signature Page Elizabeth Mayorga Patient (or Guardian) Signature/Date: I have read and understand the instructions given to me by my caregivers. Caregiver/RN/Doctor Signature/Date: The above-named patient and/or guardian has received patient instructions on this date. + Original Patient Signature Page (only) stays with chart. Please make copy for patient.
--- NOTE | 2018-01-05 09:51 | GI REPORT ---
Patient Name: Elizabeth Mayorga Procedure Date: 01/05/2018 8:44 AM Date of : 1955 Admit Type: Outpatient Age: 62 Gender: Female Attending MD: Tad Stapleton DO Procedure: Colonoscopy Providers: Tad Stapleton DO Referring MD: Joanne Harrington Indications: Abnormal CT of the GI tract, Weight loss Medicines: Monitored Anesthesia Care Complications: No immediate complications. Estimated Blood Loss: Estimated blood loss: none. Procedure: Pre-Anesthesia Assessment: - Prior to the procedure, a History and Physical was performed, and patient medications and allergies were reviewed. The patient's tolerance of previous anesthesia was also reviewed. The risks and benefits of the procedure and the sedation options and risks were discussed with the patient. All questions were answered, and informed consent was obtained. Prior Anticoagulants: The patient has taken no previous anticoagulant or antiplatelet agents. ASA Grade Assessment: III - A patient with severe systemic disease. After reviewing the risks and benefits, the patient was deemed in satisfactory condition to undergo the procedure. After I obtained informed consent, the scope was passed under direct vision. Throughout the procedure, the patient's blood pressure, pulse, and oxygen saturations were monitored continuously. The Scope was introduced through the anus and advanced to the terminal ileum. The colonoscopy was performed without difficulty. The patient tolerated the procedure well. The quality of the bowel preparation was good. The terminal ileum, the appendiceal orifice and the rectum were photographed. Findings: The perianal and digital rectal examinations were normal. Multiple small-mouthed diverticula were found in the sigmoid colon. A 3 mm polyp was found in the sigmoid colon. The polyp was sessile. The polyp was removed with a cold biopsy forceps. Resection and retrieval were complete. Non-bleeding internal hemorrhoids were found during retroflexion. The hemorrhoids were small. Impression: - Diverticulosis in the sigmoid colon. - One 3 mm polyp in the sigmoid colon, removed with a cold biopsy forceps. Resected and retrieved. - Non-bleeding internal hemorrhoids. Recommendation: - Resume previous diet. - Continue present medications. - Await pathology results. - Return to primary care physician as previously scheduled. Tad Stapleton DO 01/05/2018 9:51:15 AM This report has been signed electronically. Note Initiated On: 01/05/2018 8:44 AM Number of Addenda: 0 I attest to the content of the Intraoperative Record and orders documented therein, exceptions below {[id number]}
--- NOTE | 2018-01-05 09:53 | Anesthesiology Progress Note ---
Anesthesia Post Op Note Date & Time January 05, 2018 at 09:53 Vital Signs Pain Intensity: 0 Vital Signs Past 12 Hours Date Time Temp Pulse Resp B/P (MAP) Pulse Ox O2 Delivery O2 Flow Rate FiO2 01/05/18 09:45 36 71 16 112/70 (84) 98 Room Air 01/05/18 08:42 36.6 85 20 132/88 (103) 95 Room Air Notes Mental Status: alert / awake / arousable, participated in evaluation Pt Amnestic to Procedure: Yes Nausea / Vomiting: adequately controlled Pain: adequately controlled Airway Patency, RR, SpO2: stable & adequate BP & HR: stable & adequate Hydration State: stable & adequate Anesthetic Complications: no major complications apparent
[2018-01-05 10:10] VITALS: BP 118/81; PULSE 71; O2SAT 93
== END | disposition home or self-care (01) ==
LOC: C.GI 08:16
PROVIDERS: ATTEND Internal Medicine
DX: R93.3 Abnormal findings on diagnostic imaging of other parts of digestive tract (principal); R63.4 Abnormal weight loss; K57.30 Diverticulosis of large intestine without perforation or abscess without bleeding; D12.5 Benign neoplasm of sigmoid colon; K64.8 Other hemorrhoids; F17.200 Nicotine dependence, unspecified, uncomplicated; Z86.010 Personal history of colon polyps; K21.9 Gastro-esophageal reflux disease without esophagitis; Z85.828 Personal history of other malignant neoplasm of skin; Z98.1 Arthrodesis status

== ENCOUNTER 2020-02-14 05:07 | Inpatient (IN) ==
--- NOTE | 2020-01-24 22:40 | PAT Medication Instructions ---
Medication Instructions Date of Service January 24, 2020 Home Medications Medication Instructions Recorded linaclotide 145 mcg capsule 145 mcg PO QAM #90 cap 10/05/19 hydroxyzine HCl 50 mg tablet 50 mg PO TID PRN #1 tab 01/04/20 B-complex with vitamin C 1 tab PO DAILY albuterol sulfate 90 mcg/actuation aerosol inhaler 2 puffs INH Q4H PRN ascorbic acid (vitamin C) 1,000 mg tablet 500 mg PO DAILY sertraline 100 mg tablet 200 mg PO QPM linaclotide 145 mcg capsule 145 mcg PO QAM nortriptyline 10 mg capsule 50 mg PO HS buspirone 10 mg tablet 10 mg PO BID hydroxyzine HCl 50 mg tablet 50 mg PO TID PRN Cbd Oil 1 mg PO BID meloxicam 15 mg PO DAILY pantoprazole 40 mg PO HS ASK your surgeon for instructions meloxicam 15 mg PO DAILY DO NOT take the morning of surgery B-complex with vitamin C 1 tab PO DAILY ascorbic acid (vitamin C) 1,000 mg tablet 500 mg PO DAILY linaclotide 145 mcg capsule 145 mcg PO QAM hydroxyzine HCl 50 mg tablet 50 mg PO TID PRN Cbd Oil 1 mg PO BID Take morning of surgery With a small sip of water, OTHERWISE NOTHING TO EAT OR DRINK AFTER MIDNIGHT: albuterol sulfate 90 mcg/actuation aerosol inhaler 2 puffs INH Q4H PRN (if needed, and bring with you to the hospital) buspirone 10 mg tablet 10 mg PO BID Take evening before surgery albuterol sulfate 90 mcg/actuation aerosol inhaler 2 puffs INH Q4H PRN (if needed) sertraline 100 mg tablet 200 mg PO QPM nortriptyline 10 mg capsule 50 mg PO HS buspirone 10 mg tablet 10 mg PO BID hydroxyzine HCl 50 mg tablet 50 mg PO TID PRN (if needed) Cbd Oil 1 mg PO BID pantoprazole 40 mg PO HS Other Notes If you have any questions please call us at [phone] or [phone] or [phone] or [phone]
--- NOTE | 2020-01-25 12:11 | Anesthesiology Consultation ---
Date of Service January 25, 2020 Assessment & Plan (1) Encounter for pre-operative examination: COVID Status: As of 01/23 nurse assessment, patient denies travel to endemic area, known exposure/sick contacts, symptoms. Was tested for covid in November in [place] due to fever, resulted negative. Lives in [facility]. *Pt has scoliosis w/ h/o lumbar fusion. Discussed both SAB and general anesthesia as alternative. Chart Review Chart Review: Acceptable Risk for Surgery (pending surgeon-ordered PCP clearance, confirmed EKG) and Patient seen in Pre Admission Testing Teaching & Discussion Instructed NPO after midnight before surgery, except medications with 15 cc of water. Medication instructions provided according to the PAT guidelines. History Surgery Operation Date: 02/14/20 07:15 Proposed Procedures p Right Total Hip Arthroplasty Anterior - Stephen Mcgregor DO Height/Weight Height: 5 ft 3 in Weight: 65.9 kg Allergies Allergy/AdvReac Type Severity Reaction Status Date / Time ibuprofen Allergy Unknown CAUSES Verified 01/18/20 08:34 HEMORRHOID BLEEDING nickel Allergy Unknown RASH AND Verified 01/18/20 08:34 IRRITATION WITH NICKEL EARRINGS Medications Home Medications Medication Instructions Recorded Confirmed Last Taken B-complex with vitamin C 1 tab PO DAILY 02/21/19 01/18/20 10/13/19 albuterol sulfate 90 mcg/actuation 2 puffs INH Q4H PRN gm 02/21/19 01/18/20 Unknown aerosol inhaler ascorbic acid (vitamin C) 1,000 mg 500 mg PO DAILY tab 02/21/19 01/18/20 10/13/19 tablet sertraline 100 mg tablet 200 mg PO QPM tab 09/15/19 01/18/20 10/16/19 17:00 linaclotide 145 mcg capsule 145 mcg PO QAM #90 cap 10/05/19 01/18/20 10/15/19 17:00 nortriptyline 10 mg capsule 50 mg PO HS cap 10/05/19 01/18/20 10/16/19 09:00 buspirone 10 mg tablet 10 mg PO BID tab 01/04/20 01/18/20 Unknown hydroxyzine HCl 50 mg tablet 50 mg PO TID PRN #1 tab 01/04/20 01/18/20 Unknown Cbd Oil 1 mg PO BID 01/18/20 01/18/20 Unknown meloxicam 15 mg PO DAILY 01/18/20 01/18/20 Unknown pantoprazole 40 mg PO HS 01/18/20 01/18/20 Unknown Past Medical History Medical History Anxiety Chronic obstructive pulmonary disease MILD. Reports using albuterol 1-2x per week. Depression Diverticular disease Hernia History of basal cell cancer History of esophageal dilatation History of tobacco use (Inactive) CURRENT SMOKER Hyperplastic colon polyp (Inactive) IBS (irritable bowel syndrome) Osteoarthritis Pulmonary nodules [address] SCAN [place]WIST[place]Miguel A, FOLLOWS FERNANDO BARNETT Scoliosis Exercise / Class Metabolic Activity III < 4 Walking/Shop/Light housework ([place] not have stairs at home, denies CP or SOB with ambulation on one level) Past Family History Family History Mother Diabetes Cardiac disorder Breast cancer Grandfather Cardiac disorder Grandmother (Maternal) Diabetes Past Surgical History Surgical History H/O colonoscopy History of anesthesia reaction migraine only 1 time, 15 yr ago History of basal cell carcinoma (BCC) excision History of carpal tunnel release of both wrists History of cholecystectomy History of endometrial ablation History of esophagogastroduodenoscopy (EGD) History of lumbar fusion History of tonsillectomy History of tubal ligation Status post trigger finger release HX OF Past Anesthesia History No Hx of Anesthesia Complications (single episode of migraine, no issues since) and No Family Hx of Anesthesia Complications History of PONV No Hx of PONV and No Hx of Motion Sickness Social History Smoking Status: Current every day smoker tobacco type: cigarettes Smoking cigarettes per day: .5PPD/ADVISED NPO Hx Alcohol Use: No Hx Substance Use: No substance use type: marijuana and other Substance Use Type Other:: CBD OIL, MARIJUANA (ONCE OR TWICE A WEEK AVERAGE, LAST USE WEEKS AGO) Last Used Substance: Days (ago) Review of Systems Pt denies any recent chest pain, shortness of breath, palpitations, cough, fever or URI. Physical Exam Vital Signs BP: 114/74 P: 72bpm SPO2: 93% RA T: 99.0 F R: 16 ENMT Mouth: + chipped teeth (upper R canine); no dental restorations and no loose teeth Thyromental Distance: < 3.5 Finger Breadths (3) Mallampati Class: II Neck normal visual inspection; neck extension not limited Respiratory normal respiratory effort Auscultation: lungs clear to auscultation bilaterally Cardiovascular Rate/Rhythm: regular rate and regular rhythm Heart Sounds: no murmur Vessels: no carotid bruit Extremities: no edema Testing Laboratory Results 01/25/20 12:24 01/25/20 12:24 PT 10.4 Seconds (9.0-12.0) 01/25/20 12:24 INR 1.0 (0.9-1.1) 01/25/20 12:24 APTT 28.5 Seconds (21.0-31.0) 01/25/20 12:24 Hemoglobin A1c 5.5 % (4.5-5.6) 01/25/20 12:24 Urine Color Yellow 01/25/20 Unknown Urine Appearance Clear (Clear) 01/25/20 Unknown Urine pH 6.5 (4.5-7.5) 01/25/20 Unknown Ur Specific [place] 1.016 (1.000-1.030) 01/25/20 Unknown Urine Protein Negative (Negative) 01/25/20 Unknown Urine Glucose (UA) Negative (Negative) 01/25/20 Unknown Urine Ketones Negative (Negative) 01/25/20 Unknown Urine Nitrite Negative (Negative) 01/25/20 Unknown Ur Leukocyte Esterase 1+ (Negative) H 01/25/20 Unknown Urine WBC (Auto) 1-5 /hpf (0-5) 01/25/20 Unknown Urine RBC (Auto) 5-10 /hpf (0-4) H 01/25/20 Unknown U Hyaline Cast (Auto) 0 /lpf (0-5) 01/25/20 Unknown U Epithel Cells (Auto) 5-10 /lpf (0-5) H 01/25/20 Unknown Urine Bacteria (Auto) Negative (Negative) 01/25/20 Unknown Blood Type A Positive 01/25/20 12:24 Antibody Screen NEGATIVE 01/25/20 12:24 Electrocardiogram Date: 01/25/20 Findings: + NSR @ (68bpm) *unconfirmed Chest X-Ray Date: 01/25/20 FINDINGS: The cardiac and mediastinal contours remain stable. There is stable biapical reticulonodular interstitial thickening. There is no acute parenchymal consolidation. There is no failure. There are no pleural effusions.[Subtle subpleural interstitial thickening is also suspected portions lung bases. Postsurgical changes are present within the lumbar spine IMPRESSION: No active disease in the chest.
--- NOTE | 2020-01-25 12:56 | XRay Report ---
XR chest Pre-admission PA/Lat CLINICAL HISTORY: Preoperative chest COMPARISON STUDY: September 01, 2017 FINDINGS: The cardiac and mediastinal contours remain stable. There is stable biapical reticulonodula r interstitial thickening. There is no acute parenchymal consolidation. There is no failure. There ar e no pleural effusions.[Subtle subpleural interstitial thickening is also suspected portions lung bas es. Postsurgical changes are present within the lumbar spine IMPRESSION: No active disease in the chest. ACT 112: Negative or not required by law. Electronically signed by: Vernon Davis M.D. 01/25/2020 12:55 PM
[2020-01-25 14:06] LABS: Basophils # (auto) 0.07 K/uL (0-0.2); Eosinophils # (auto) 0.48 K/uL (0-0.5); Eosinophils % (auto) 6.6 %; Hematocrit (blood only) 36.2 % (37-47); Immature Granulocytes # (auto) 0.02 K/uL (0.00-0.02); Immature Granulocytes % (auto) 0.3 %; Lymphocytes # (auto) 2.39 K/uL (1.2-3.4); Lymphocytes % (auto) 33.1 %; Mean Corpuscular Hemoglobin 31.1 pg (25-34); Mean Corpuscular Hgb Conc 33.1 g/dL (32-36); Mean Corpuscular Volume 93.8 fL (80-100); Mean Platelet Volume 9.8 fL (7.4-10.4); Monocytes # (auto) 0.51 K/uL (0.11-0.59); Monocytes % (auto) 7.1 %; Neutrophils # (auto) 3.76 K/uL (1.4-6.5); Neutrophils % (auto) 51.9 %; Platelet Count 283 K/uL (130-400); RDW Coefficient of Variation 15.4 % (11.5-14.5); Red Blood Count 3.86 M/uL (4.2-5.4); White Blood Count 7.23 K/uL (4.8-10.8)
[2020-01-25 14:15] LABS: Estimated Average Glucose 111 mg/dl; Hemoglobin A1C 5.5 % (4.5-5.6)
[2020-01-25 14:18] LABS: Partial Thromboplastin Time 28.5 Seconds (21.0-31.0); Prothrombin Time 10.4 Seconds (9.0-12.0)
[2020-01-25 14:20] LABS: Albumin Level 3.7 gm/dl (3.4-5.0); Calcium 8.9 mg/dl (8.5-10.1); Est GFR (African American) 97.4; Est GFR (Non-African American) 84.1; Potassium 4.1 mmol/L (3.5-5.1)
[2020-01-25 14:35] LABS: Appearance Urine Clear (Clear); Bacteria Urine Automated Negative (Negative); Bilirubin Urine Negative (Negative); Blood Urine Negative (Negative); Cast Urine Automated 0 /lpf (0-5); Color Urine Yellow; Glucose Urine UA Negative (Negative); Ketones Urine Negative (Negative); Leukocyte Esterase Urine 1+ (Negative); Nitrite Urine Negative (Negative); Protein Urine Negative (Negative); Specific Gravity Urine 1.016 (1.000-1.030); Urobilinogen Urine Negative (Negative); pH Urine 6.5 (4.5-7.5)
--- NOTE | 2020-01-26 14:40 | Electrocardiogram Report ---
Test Reason : Blood Pressure : / mmHG Vent. Rate : 068 BPM Atrial Rate : 068 BPM P-R Int : 144 ms QRS Dur : 098 ms QT Int : 408 ms P-R-T Axes : 060 073 065 degrees QTc Int : 433 ms Normal sinus rhythm Normal ECG When compared with ECG of 01-SEP-2017 11:59, No significant change was found Confirmed by Dirk Garvey ([id number]) on 01/26/2020 2:39:44 PM Referred By: Stephen Mcgregor Confirmed By:Dirk Garvey
--- NOTE | 2020-02-11 18:34 | History & Physical Report ---
Date of Service February 14, 2020 Assessment & Plan (1) Degenerative joint disease of right hip: I have indicated the patient for right anterior total hip replacement. The risks, benefits and complications of surgery were explained to the patient which include but not limited to infection, acute blood loss, DVT/PE, injury to nerves, vessels, bone, soft tissue, arthrofibrosis, chronic pain, failure of the prosthesis, hip dislocation, leg length discrepancy, need for additional surgery, cardiac and pulmonary events and . The patient wished to proceed with surgery and informed consent was obtained at this time. We will plan for 81mg ASA BID post-operatively for DVT prophylaxis. Upon discharge the patient will be discharged home with home health services. Appropriate clearances by PCP were obtained. Patient asymptomatic for UTI. History of Present Illness Chief Complaint: Right hip pain/djd Primary Care Provider: Abiola Pryor PA-C The patient is a 64 year old female who presents with complaints of severe right hip pain and DJD. The patient has failed outpatient conservative treatments to this point which included NSAIDs, IA corticosteroid injection, home exercise/walking program. The patient's pain and limited function have progressed to the point where they severely hinder their activities of daily living and they no longer tolerate exercise programs. They are requesting to proceed with total hip replacement surgery. Allergies Allergy/AdvReac Type Severity Reaction Status Date / Time ibuprofen Allergy Unknown CAUSES Verified 02/14/20 05:32 HEMORRHOID BLEEDING nickel Allergy Unknown RASH AND Verified 02/14/20 05:32 IRRITATION WITH NICKEL EARRINGS Home Medications Home Medications Medication Instructions Recorded Confirmed Type B-complex with vitamin C 1 tab PO DAILY 02/21/19 02/14/20 History albuterol sulfate 90 mcg/actuation 2 puffs INH Q4H PRN gm 02/21/19 02/14/20 History aerosol inhaler ascorbic acid (vitamin C) 1,000 mg 500 mg PO DAILY tab 02/21/19 02/14/20 History tablet sertraline 100 mg tablet 200 mg PO QPM tab 09/15/19 02/14/20 History linaclotide 145 mcg capsule 145 mcg PO QAM #90 cap 10/05/19 02/14/20 Rx nortriptyline 10 mg capsule 50 mg PO HS cap 10/05/19 02/14/20 History buspirone 10 mg tablet 10 mg PO BID tab 01/04/20 02/14/20 History hydroxyzine HCl 50 mg tablet 50 mg PO TID PRN #1 tab 01/04/20 02/14/20 Rx Cbd Oil 1 mg PO BID 01/18/20 02/14/20 History meloxicam 15 mg PO DAILY 01/18/20 02/14/20 History pantoprazole 40 mg PO HS 01/18/20 02/14/20 History Past Med/Surg History Medical History Anxiety Chronic obstructive pulmonary disease MILD. Reports using albuterol 1-2x per week. Depression Diverticular disease Hernia History of basal cell cancer History of esophageal dilatation History of tobacco use (Inactive) CURRENT SMOKER Hyperplastic colon polyp (Inactive) IBS (irritable bowel syndrome) Osteoarthritis Pulmonary nodules [address] SCAN GABRIELLE, KIRSTIN BARNETT Scoliosis Surgical History H/O colonoscopy History of anesthesia reaction migraine only 1 time, 15 yr ago History of basal cell carcinoma (BCC) excision History of carpal tunnel release of both wrists History of cholecystectomy History of endometrial ablation History of esophagogastroduodenoscopy (EGD) History of lumbar fusion History of tonsillectomy History of tubal ligation Status post trigger finger release HX OF Family History Mother Diabetes Cardiac disorder Breast cancer Grandfather Cardiac disorder Grandmother (Maternal) Diabetes Social History Preferred Language: Luxembourgish Communication Ability: Effective Visual Impairment: Limited Hearing Ability: Normal Fresh Food Manager Required: No Beliefs That Will Affect Care: None marital status: Current Living Situation: Alone current occupational status: employed Other Information That Helps Us Care for You: No Feels Safe at Home: Yes Smoking Status: Current every day smoker Tobacco Type: cigarettes ; Cigarettes Per Day: 10 ; Second Hand Exposure: Yes (as a child) ; Hx Alcohol Use: No Hx Substance Use: No Childhood Exposure to Second-Hand Smoke: Yes caffeine: Yes during the past year weight has: other Dental Care, Regularly: No Physical Activity Frequency: Does not Exercise Review of Systems Review of Systems: All systems reviewed & are unremarkable except as noted in HPI & below Constitutional: as per Subjective / HPI Physical Exam Physical Exam: RLE NVSI +EHL/FHL/TA/GS SILT grossly, +2 DP pulse, compartments soft NT, limited painful ROM of the hip, antalgic gait. Constitutional: WD/WN, vitals as above Eyes: PERRL, conjunctivae normal, anicteric sclerae ENMT: external ear and nose normal, oropharynx normal Neck: trachea midline, no thyromegaly Respiratory: normal respiratory effort, lungs clear to auscultation Cardiovascular: RRR, no murmur, no edema Gastrointestinal (Abdomen): normal bowel sounds, soft, nontender, no hepatosplenomegaly Musculoskeletal: no cyanosis or clubbing, extremities motor strength 5/5 Skin: no rashes, warm and dry Neurologic: patellar DTR's 2+ bilat, sensation intact Psychiatric: A+Ox3, euthymic affect Lymphatic: no cervical or axillary lymphadenopathy Results & Data Results & Data ([facility]) Diagnostic Findings Multiple views of the hip demonstrates severe DJD with complete loss of the medial joint space. +osteophytes, +sclerosis.
[2020-02-14] MEDS ORDERED: ACETAMINOPHEN 500 MG TAB PO SCH (06:00)
[2020-02-14] MEDS ORDERED: TRANEXAMIC ACID 1,000 MG **IV Intra-op IV SCH (06:00)
[2020-02-14] MEDS ORDERED: CeleBREX 200 MG CAP PO SCH (06:00)
[2020-02-14] MEDS ORDERED: ROPIVACAINE 0.5% HCL/PF 150 MG, BUPIVACAINE 0.5% MPF 30 ML, EPINEPHrine 30MG/30ML (OR U... INSTIL SCH (06:00)
[2020-02-14] MEDS ORDERED: FAMOTIDINE 20 MG TAB PO SCH (06:00)
[2020-02-14] MEDS ORDERED: CEFAZOLIN 1000MG 1,000 MG/7.5 ML SYR IV SCH (06:00)
[2020-02-14] MEDS ORDERED: dexAMETHasone 4 MG TAB PO SCH (06:00)
[2020-02-14] MEDS ORDERED: METOCLOPRAMIDE HCL 10 MG TABLET PO SCH (06:00)
[2020-02-14] MEDS ORDERED: GABAPENTIN 600 MG DOSE PO SCH (06:00)
[2020-02-14] MEDS ORDERED: LR 500ML BOLUS, THEN 15ML/HR IV SCH (06:00)
[2020-02-14] MEDS ORDERED: TRANEXAMIC ACID 1,000 MG **IV Pre-op IV SCH (06:00)
[2020-02-14] MEDS ORDERED: MIDAZOLAM HCL 1 MG/ML 2ML VIAL ONE ×2 (06:17→09:11)
[2020-02-14] MEDS ORDERED: fentaNYL citrate 100 MCG/2 ML VIAL ONE (06:17)
[2020-02-14] MEDS ORDERED: PROPOFOL IV EMULSION 10 MG/ML 20 ML VIAL IV ONE ×3 (06:17→13:10)
[2020-02-14] MEDS ORDERED: BUPIVACAINE 0.5 % 5 MG/1 ML PF 10ML VIAL ONE (06:30)
[2020-02-14] MEDS ORDERED: BACITRACIN INJ 50,000 UNIT VIAL ONE ×2 (07:04→11:53)
[2020-02-14] MEDS ORDERED: ORTHO JOINT ANESTHETIC ONE (07:04)
--- NOTE | 2020-02-14 07:21 | History & Physical Bridge Note ---
Date of Service February 14, 2020 History & Physical Bridge Note I have examined the patient, reviewed the History & Physical and in the interval since the performance of the History & Physical I have noted the following changes of clinical significance: no changes noted
[2020-02-14] MEDS ORDERED: PHENYLEPHRINE HCL 10 MG/ML VIAL ONE (12:44)
[2020-02-14] MEDS ORDERED: ePHEDrine sulfate 50 MG/ML AMP ONE (12:55)
--- NOTE | 2020-02-14 13:40 | Post Operative Brief Note ---
Immediate Post Op Note v1 Date of Surgery February 14, 2020 Pre & Post Diagnosis Operation Date: 02/14/20 07:15 Pre-Op Diagnosis: Osteoarthritis Right Hip Post-Op Diagnosis: Osteoarthritis Right Hip I identified the patient and participated in the time-out.: Yes Procedure Operation Date: 02/14/20 07:15 Actual Procedures p Right Total Hip Arthroplasty Anterior(Right) - Stephen Mcgregor DO Surgeon Stephen Mcgregor DO I&C Tech Shar Trejo Estimated Blood Loss 160 Findings Consistent with Post-Op Diagnosis Fluids 1300 cc LR Specimens femoral head Anesthesia Type Spinal MAC Complications none Disposition Disposition: Recovery Room Overlapping Procedure I was present for: the critical portions of procedure. I was immediately available: during the entire case. Back up surgeon: was not required during procedure.
--- NOTE | 2020-02-14 13:43 | Operative Report ---
Post Operative Report Pre & Post Diagnosis Operation Date: 02/14/20 07:15 Pre-Op Diagnosis: Osteoarthritis Right Hip Post-Op Diagnosis: Osteoarthritis Right Hip I identified the patient and participated in the time-out.: Yes Procedure Operation Date: 02/14/20 07:15 Actual Procedures p Right Total Hip Arthroplasty Anterior(Right) - Stephen Mcgregor DO Surgeon Stephen Mcgregor DO Upsetter Helper Shar Trejo Estimated Blood Loss 160 Findings Consistent with Post-Op Diagnosis Fluids 1300 cc LR Specimens femoral head Anesthesia Type Spinal MAC Complications none Disposition Disposition: Recovery Room Indications The patient is a 64-year-old female who presents with severe progressive right hip DJD who has failed outpatient conservative treatments. I indicated the patient for a anterior total hip replacement and the risks and benefits were explained in detail which include but not limited to infection, bleeding, blood clot, damage to surrounding bone, nerves, vessels, soft tissue, hip dislocation, failure of the prosthesis, leg length discrepancy, need for additional surgery and . The patient agreed to proceed with replacement of the hip and informed consent was obtained. Appropriate clearances were obtained. Description of Procedure COMPONENTS USED: [employer] hip system: Acetabulum size 52, femur size 7 standard offset, femoral head 36-3, liner 5230, acetabular screw 25 mm x 2. DESCRIPTION OF PROCEDURE: Following satisfactory spinal anesthesia, the patient was placed supine on the OR table. The left leg was placed in the well leg rothman and the right leg in the traction device. The right leg was prepared with ChloraPrep and draped sterilely. A surgical timeout was performed, patient identified and site monty verified. Appropriate antibiotics were given. A standard anterior approach in the interval between the sartorius and tensor muscles was performed. Dissection was carried down through subcutaneous tissues. Electrocautery was utilized for hemostasis. Circumflex femoral vessels were identified, tied and ligated. The anterior capsular fat pad was removed and the capsulotomy was performed revealing the arthritic femoral neck and head. A femoral neck cut was made with reciprocating saw and the bone fragments removed. The acetabular self-retraining retractor was placed. Acetabular reaming was completed under fluoroscopic guidance, a 52 shell was impacted into an anatomic position and secured with a dome screw. Local anesthetic was placed and following irrigation, the polyethylene liner was placed. The femur was placed into position of external rotation, extension and adduction. Femoral canal was prepared up to the size 7 standard offset. Trial reduction with a 36-3 neck length head showed good soft tissue tension, leg lengths restored, and good fit and fill of the proximal canal using fluoroscopic landmarks. The hip was dislocated. The trial component was removed. The final implant was placed. The hip was irrigated with sterile saline solution and reduced. A Betadine soak was performed. After 3 minutes, the hip was once more irrigated with copious sterile saline solution with bacitracin. Debi-incisional soft tissue was injected utilizing [place] [employer]omix which includes a combination of Ropivicaine 0.5% 150mg, Bupivicaine 0.5%/Epinephrine 1:200,000 30ml, Toradol 30mg, Dexamethasone 4mg, Ketamine 10mg, Clonidine 100mcg and NSS 30ml solution. The capsule was then closed with 1-0 Vicryl interrupted figure of eight sutures. The fascia was closed with a running suture of #1 Vicryl, the subcutaneous tissues with 2-0 Vicryl and the skin with anna and a sterile dressing was applied which included Christa incisional VAC. The patient tolerated the procedure well and was transported to PACU in stable condition. Due to the complex nature of the procedure, the entire surgery was performed with the operational assistance of Shar Trejo PA-C. The academic affairs assistant, under direct supervision, was involved in the actual performance of all aspects of the surgical procedure including patient positioning, hemostasis, tissue retraction, instrument management and wound closure. I attest to the content of the Intraoperative Record and any orders documented therein. Any exceptions are noted below.
--- NOTE | 2020-02-14 14:21 | XRay Report ---
AP PELVIS, CROSSTABLE LATERAL RIGHT HIP History: Right total hip arthroplasty. Degenerative arthritis. Postop. FINDINGS: The patient is status post a right total hip arthroplasty. The hardware is intact. No fract ure or dislocation. Skin anna are in place. IMPRESSION: Right total hip arthroplasty. No evidence for hardware complication ACT 112: Negative or not required by law. Electronically signed by: Kenyon Ross M.D. 02/14/2020 2:20 PM
--- NOTE | 2020-02-14 14:22 | Fluoroscopy Report ---
FL hip RT 1V CLINICAL HISTORY: Right anterior hip arthroplasty. COMPARISON STUDY: None. FLUOROSCOPY TIME: 54 seconds. FINDINGS: 2 fluoroscopic spot images of the right hip demonstrate a right total hip arthroplasty. Keith grace appears intact. No fracture or dislocation. IMPRESSION: Fluoroscopy provided for right total hip arthroplasty. ACT 112: Negative or not required by law. Electronically signed by: Kenyon Ross M.D. 02/14/2020 2:20 PM
--- NOTE | 2020-02-14 14:34 | Anesthesiology Progress Note ---
Date of Service February 14, 2020 Anesthesia Post Procedure Vital Signs Vital Signs: Temp Pulse Pulse Resp BP Pulse Ox 02/14/20 14:20 73 14 131/89 95 02/14/20 14:10 64 20 120/78 98 02/14/20 14:01 37 C 66 16 133/89 100 02/14/20 06:20 85 20 138/92 98 02/14/20 05:59 38 C H 02/14/20 05:39 37.7 C H 104 H 20 104/83 96 Transfer of Care Handoff Completed per policy Notes Mental Status: alert / awake / arousable and participated in evaluation Patient Amnestic to Procedure: Yes Nausea / Vomiting: adequately controlled Pain: adequately controlled Airway Patency, RR, SpO2: stable & adequate BP & HR: stable & adequate Hydration State: stable & adequate Anesthetic Complications: no major complications apparent and Pt Satisfied with anesthetic care
[2020-02-14] MEDS ORDERED: ALBUTEROL HFA 8 GM INHALER INH PRN (15:56)
[2020-02-14] MEDS ORDERED: HYDROmorphone INJ 0.5 MG/0.5 ML SYR IV PRN (15:56)
[2020-02-14] MEDS: ACETAMINOPHEN 500 MG TAB PO SCH ×2 (17:04→21:19)
--- NOTE | 2020-02-14 18:19 | Orthopedic Progress Note ---
Date of Service February 14, 2020 Assessment & Plan (1) Degenerative joint disease of right hip: s/p Right anterior MATTY -Ancef x 24 -DVT ppx: SCDs, TEDs, 81mg ASA BID -WBAT RLE -PT/OT -PO XR demonstrates well aligned well fixed total hip prothesis without fracture/dislocation -am labs -DC planning Admission and Anticipated Discharge Date Admission Date: February 14, 2020 Subjective Post Operative Progress Note Patient seen sitting up in bed, comfortable, denies complaints, pain well controlled, no acute issues. Review of Systems Review of Systems: All systems reviewed & are unremarkable except as noted in HPI & below Constitutional: as per Subjective / HPI Physical Exam Physical Exam: RLE NVSI +EHL/FHL/TA/GS SILT grossly, +2 DP pulse, compartments soft NT, dressing cdi. Constitutional: WD/WN, vitals as above Results & Data ([place]) Vital Signs (Past 12 Hours) Vital Signs Temp Pulse Pulse Resp BP BP Pulse Ox 02/14/20 17:39 37.1 C 78 18 110/68 94 02/14/20 16:39 36.9 C 78 20 126/84 94 02/14/20 15:20 81 16 111/76 94 02/14/20 15:10 37.5 C 79 20 112/80 94 02/14/20 15:00 78 20 109/74 94 02/14/20 14:50 79 18 137/83 95 02/14/20 14:40 69 16 136/83 95 02/14/20 14:30 36.6 C 67 16 131/81 94 02/14/20 14:20 73 14 131/89 95 02/14/20 14:10 64 20 120/78 98 02/14/20 14:01 37 C 66 16 133/89 100 02/14/20 06:20 85 20 138/92 98
[2020-02-14] MEDS: KETOROLAC TROMETHAMINE 15 MG/ML VIAL IV SCH (18:33)
[2020-02-14] MEDS: CEFAZOLIN 2000MG 2,000 MG/15 ML SYR IV SCH (20:19)
[2020-02-14] MEDS ORDERED: PANTOprazole 40 MG TAB PO SCH (21:00)
[2020-02-14] MEDS ORDERED: SERTRALINE HCL 100 MG TABLET PO SCH (21:00)
[2020-02-14] MEDS ORDERED: NORTRIPTYLINE HCL 25 MG CAP PO SCH (21:00)
[2020-02-15] MEDS: OXYCODONE HCL IR 5 MG TAB (IMMEDIATE RELEASE) PO PRN ×3 (00:25→15:18)
[2020-02-15] MEDS: KETOROLAC TROMETHAMINE 15 MG/ML VIAL IV SCH ×3 (00:26→13:15)
[2020-02-15] MEDS: CEFAZOLIN 2000MG 2,000 MG/15 ML SYR IV SCH (05:08)
[2020-02-15] MEDS: ACETAMINOPHEN 500 MG TAB PO SCH ×2 (05:09→13:14)
[2020-02-15 07:11] LABS: Basophils # (auto) 0.03 K/uL (0-0.2); Basophils % (auto) 0.2 %; Eosinophils # (auto) 0.01 K/uL (0-0.5); Eosinophils % (auto) 0.1 %; Hematocrit (blood only) 37.1 % (37-47); Hemoglobin 12.5 g/dL (12.0-16.0); Immature Granulocytes # (auto) 0.04 K/uL (0.00-0.02); Immature Granulocytes % (auto) 0.2 %; Lymphocytes # (auto) 1.43 K/uL (1.2-3.4); Lymphocytes % (auto) 8.1 %; Mean Corpuscular Hemoglobin 31.1 pg (25-34); Mean Corpuscular Hgb Conc 33.7 g/dL (32-36); Mean Corpuscular Volume 92.3 fL (80-100); Mean Platelet Volume 9.4 fL (7.4-10.4); Monocytes # (auto) 1.35 K/uL (0.11-0.59); Monocytes % (auto) 7.6 %; Neutrophils % (auto) 83.8 %; Platelet Count 241 K/uL (130-400); RDW Coefficient of Variation 15.1 % (11.5-14.5); RDW Standard Deviation 51.6 fL (36.4-46.3); Red Blood Count 4.02 M/uL (4.2-5.4); White Blood Count 17.66 K/uL (4.8-10.8)
--- NOTE | 2020-02-15 07:28 | Orthopedic Progress Note ---
Date of Service February 15, 2020 Assessment & Plan (1) Degenerative joint disease of right hip: s/p Right anterior MATTY POD#1 -Ancef x 24 -DVT ppx: SCDs, TEDs, 81mg ASA BID -WBAT RLE -PT/OT -PO XR demonstrates well aligned well fixed total hip prothesis without fracture/dislocation -am labs - as above, hgb 12.5 -DC planning - home with Admission and Anticipated Discharge Date Admission Date: February 14, 2020 Subjective Post Operative Progress Note Patient seen sitting in chair and bedside, comfortable, denies complaints, pain well controlled, no acute issues. Denies F/C/N/V/SOB/CP. Review of Systems Review of Systems: All systems reviewed & are unremarkable except as noted in HPI & below Constitutional: as per Subjective / HPI Physical Exam Physical Exam: RLE NVSI +EHL/FHL/TA/GS SILT grossly, +2 DP pulse, compartments soft NT, dressing cdi. Constitutional: WD/WN, vitals as above Results & Data (MN) Vital Signs (Past 12 Hours) Vital Signs Temp Pulse Resp BP Pulse Ox 02/15/20 03:48 36.9 C 68 14 128/79 96 02/15/20 00:11 36.9 C 76 16 131/80 96 Laboratory Results 02/15/20 02/15/20 02/15/20 Range/Units 06:50 06:50 06:50 WBC 17.66 H (4.8-10.8) K/uL RBC 4.02 L (4.2-5.4) M/uL Hgb 12.5 (12.0-16.0) g/dL Hct 37.1 (37-47) % MCV 92.3 (80-100) fL MCH 31.1 (25-34) pg MCHC 33.7 (32-36) g/dL RDW Std Deviation 51.6 H (36.4-46.3) fL RDW Coeff of Lasha 15.1 H (11.5-14.5) % Plt Count 241 (130-400) K/uL MPV 9.4 (7.4-10.4) fL Immature Gran % (Auto) 0.2 % Neut % (Auto) 83.8 % Lymph % (Auto) 8.1 % [place] % (Auto) 7.6 % Eos % (Auto) 0.1 % Baso % (Auto) 0.2 % Neut # (Auto) 14.80 H (1.4-6.5) K/uL Lymph # (Auto) 1.43 (1.2-3.4) K/uL [place] # (Auto) 1.35 H (0.11-0.59) K/uL Eos # (Auto) 0.01 (0-0.5) K/uL Baso # (Auto) 0.03 (0-0.2) K/uL Immature Gran # (Auto) 0.04 H (0.00-0.02) K/uL Sodium Pending Potassium Pending Chloride Pending Carbon Dioxide Pending Anion Gap Pending BUN Pending Creatinine Pending Est Cr Clr Drug Dosing Pending Est GFR ( Amer) Pending Est GFR (Non-Af Amer) Pending BUN/Creatinine Ratio Pending Glucose Pending Calcium Pending COVID-19 PCR (Negative) Hepatitis C Ab Screen Pending 02/14/20 Range/Units 07:27 WBC (4.8-10.8) K/uL RBC (4.2-5.4) M/uL Hgb (12.0-16.0) g/dL Hct (37-47) % MCV (80-100) fL MCH (25-34) pg MCHC (32-36) g/dL RDW Std Deviation (36.4-46.3) fL RDW Coeff of Lasha (11.5-14.5) % Plt Count (130-400) K/uL MPV (7.4-10.4) fL Immature Gran % (Auto) % Neut % (Auto) % Lymph % (Auto) % [place] % (Auto) % Eos % (Auto) % Baso % (Auto) % Neut # (Auto) (1.4-6.5) K/uL Lymph # (Auto) (1.2-3.4) K/uL [place] # (Auto) (0.11-0.59) K/uL Eos # (Auto) (0-0.5) K/uL Baso # (Auto) (0-0.2) K/uL Immature Gran # (Auto) (0.00-0.02) K/uL Sodium Potassium Chloride Carbon Dioxide Anion Gap BUN Creatinine Est Cr Clr Drug Dosing Est GFR ( Amer) Est GFR (Non-Af Amer) BUN/Creatinine Ratio Glucose Calcium COVID-19 PCR NEGATIVE (Negative) Hepatitis C Ab Screen
[2020-02-15 07:42] LABS: BUN Creatinine Ratio 23.1 (10-20); Calcium 8.8 mg/dl (8.5-10.1); Creatinine Clr Calc Pharmacy 51.9 ml/min; Est GFR (African American) 76.3; Est GFR (Non-African American) 65.9; Potassium 3.3 mmol/L (3.5-5.1)
[2020-02-15] MEDS ORDERED: ASPIRIN 81 MG ECTAB PO SCH (09:00)
[2020-02-15] MEDS ORDERED: SENNA 8.6 MG TAB PO SCH (09:00)
--- NOTE | 2020-02-15 14:13 | Discharge Summary ---
Date of Service February 15, 2020 Admission HPI Per Admitting Provider The patient is a 64 year old female who presents with complaints of severe right hip pain and DJD. The patient has failed outpatient conservative treatments to this point which included NSAIDs, IA corticosteroid injection, home exercise/walking program. The patient's pain and limited function have progressed to the point where they severely hinder their activities of daily living and they no longer tolerate exercise programs. They are requesting to proceed with total hip replacement surgery. Principal Diagnosis Right anterior total hip replacement -Right hip DJD Discharge Exam RLE NVSI +EHL/FHL/TA/GS SILT grossly, +2 DP pulse, compartments soft NT, dressing cdi. Constitutional WD/WN, vitals as above Discharge Data Allergies Allergy/AdvReac Type Severity Reaction Status Date / Time ibuprofen Allergy Unknown CAUSES Verified 02/14/20 05:32 HEMORRHOID BLEEDING nickel Allergy Unknown RASH AND Verified 02/14/20 05:32 IRRITATION WITH NICKEL EARRINGS Consultations 02/15/20 08:00 Consult Case Management - Discharge Planning Routine Procedures Performed Operation Date: 02/14/20 07:15 Actual Procedures p Right Total Hip Arthroplasty Anterior(Right) - Stephen Mcgregor DO Ordered Studies 02/14/20 07:15 FL fluoroscopy <1hr Routine FL hip RT 1V Routine Hospital Course (1) Degenerative joint disease of right hip: The patient is a 64 -year-old female who presents with long standing history of severe right hip DJD and failed outpatient conservative treatments. The patient's symptoms have progressed to the point where it has been difficult to perform even normal activities of daily living. I indicated the patient for a right anterior total hip arthroplasty, the risks, benefits and complications of the procedure include but not limited to infection, bleeding, damage to bone, nerves, vessels, surrounding soft tissue, may develop blood clots, loss of function, leg length discrepancy, dislocation, failure of the components, loosening of the components, the need for additional surgery and . The patient wished to proceed with surgery at this time and informed consent was obtained. Hospital Course: On 02/14/20 the patient was taken to the operating room, adequate anesthesia administered and underwent a right anterior total hip arthroplasty. The patient tolerated the procedure well and was taken to the PACU in stable condition. Post-operatively the patient was started on a DVT ppx medication and given appropriate IV antibiotics. Consults were placed to physical therapy, occupational therapy and case management. On POD#1, the patient did well overnight and their pain was well controlled. Labs were drawn and the Hgb was 12.5. The patient progressed well with PT. Dressings were changed at this time and the incision was clean, dry and intact. The patients hospital stay was relatively uneventful and they were deemed stable by the orthopedic team and consultants to be discharged home with HH on 02/15/20. Discharge Instructions: Upon discharge the patient may weight bear as tolerates through their operative extremity. They were instructed to keep the incision clean and dry at all times. The patient may shower but should not submerge the incision, avoid bathing, pools and hot tubes. The patient was given a script for pain medication and should take as instructed. The patient was given a script for DVT ppx 81mg ASA BID and should take as directed. The patient was instructed to not drive or travel for long distances until cleared to do so. If the patient develops any symptoms of fevers, chills, nausea, vomiting, increased redness, swelling, pain or drainage from the surgical site, they should notify the office and/or proceed to the nearest emergency room. The patient should follow up in 10-14 days after surgery for their routine post-operative follow-up appointment and should call the office to confirm the date and time. s/p Right anterior MATTY POD#1 -Ancef x 24 -DVT ppx: SCDs, TEDs, 81mg ASA BID -WBAT RLE -PT/OT -PO XR demonstrates well aligned well fixed total hip prothesis without fra cture/dislocation -am labs - as above, hgb 12.5 -DC planning - home with Total Time Total Time Spent Total Time Spent (In Minutes): 30 Discharge Plan Discharge Items Patient Disposition: Home - Home Health Services Reason For Visit: Osteoarthritis Right Hip Discharge Diagnosis: Right anterior total hip replacement Activity: Resume your previous activity Lifting: Wait until after follow-up appointment Bathing: Keep incision dry Bathing Comment: No bathing, pools or hot tubs. Sexual Activity: Wait until after follow-up appointment Exercise/Sports: Wait until after follow-up appointment Driving/Machine Use: No driving Weightbearing: Full weightbearing Non-emergency contact: Primary Care Provider and Surgeon Call non-emergency contact if: you have any medication questions, your symptoms worsen, your pain is not controlled, your pain is worsening, your pain is unusual for you, your pain is concerning for you, you have a fever, your temperature is above 101, your wound has increased redness, your wound has increased drainage and your wound pain has increased Follow-up/Referrals: Abiola Pryor PA-C [Primary Care Provider] - Diet: Regular Addtl Attending Provider Instructions: ACTIVITY RECOMMENDATIONS: SELF CARE INSTRUCTIONS AFTER TOTAL HIP REPLACEMENT : Direct Anterior Approach Until the incision and soft tissues around your hip have healed, there is a possibility that the hip prosthesis could dislocate. A. Hip flexion ( Up & Down out of chair or steps ) may be difficult. This is normal. B. Numbness in front of the thigh is also normal for a few weeks. C. Use hand rails when walking on stairs. D. Wear low heeled shoes with non-slip soles. E. Be sure that your floors are free of things that could trip you - throw rugs, electrical cords, small objects. Avoid wet and waxed floors, especially with crutches and canes. F. Try to walk several times a day with rest periods between. G. Continue with all the exercises taught to you in the hospital. Again, make walking a part of your daily routine. SPECIAL CARE INSTRUCTIONS: VERY IMPORTANT TO READ AND REVIEW A. You may still be at risk for phlebitis and blood clots. 1. Wear surgical stockings (ANSELMO hose) for 2 weeks after surgery to improve circulation and reduce swelling. 2. Take Aspirin 81mg twice daily for 4 weeks or as directed by your doctor. This is your blood thinner. 3. High risk patients may be prescribed a stronger blood thinner if necessary. 4. If you are on Coumadin normally, your family doctor/executive advisor should monitor your blood work. Expect a phone call the day of or the day after bloodwork is drawn to adjust your dosage. B. You must take antibiotics before having dental work, bladder, bowel and other surgery. Your doctor will provide you with a permanent card to carry describing precautions. C. Call [facility] if you have a fever, redness or swelling around the incision, cloudy drainage from incision, or sudden increase in pain in your hip, not relieved by your regular pain medication. D. Please call the office at if you have any concerns or questions about your operation or recovery. * YOU MAY SHOWER, NO TUB BATHS UNTIL CLEARED BY YOUR DOCTOR. - Keep an extra close eye on the top portion of your incision. Be sure to keep clean & dry. * WEAR ANSELMO HOSE 20 HOURS PER DAY FOR 2 WEEKS. * YOU MAY PROGRESS FROM A WALKER, TO A CANE, TO INDEPENDENT AT YOUR OWN PACE. * MOST PATIENTS WILL HAVE HOME NURSING FOR THERAPY. IF YOU DECIDE TO DO OUTPATIENT PHYSICAL THERAPY, PLEASE SCHEDULE THIS 3 TIMES PER WEEK. *PREVENA incisional vac is a special dressing covering your incision. This dressing provides a sterile dry environment while you are healing. The dressing is to be left in place for 7 days post-operatively. Your home nurse or surgeon will remove. If you develop any redness or blisters or have any questions notify your surgeon immediately. FOLLOW UP VISIT: If appointment is not already scheduled: Please call [facility] to make a follow-up appointment for 2 weeks after your surgery at . Pending Studies at Discharge: No Stand-Alone Forms: My [facility], Opioid Pain Management, Smoking Cessation Medications and DC Order Prescriptions: New aspirin 81 mg Tablet,Delayed Release (Dr/Ec) 81 mg PO BID Qty: 56 RF: 0 acetaminophen 500 mg Tablet 1,000 mg PO Q8 PRN (Reason: pain) Qty: 90 RF: 0 oxycodone 5 mg Tablet 5 mg PO Q6H MDD 4 PRN (Reason: pain) Qty: 30 RF: 0 sennosides [Senokot] 8.6 mg Tablet 17.2 mg PO QAM PRN (Reason: constipation) Qty: 28 RF: 0 Continued hydroxyzine HCl 50 mg tablet 50 mg PO TID PRN (Reason: itching) Qty: 1 RF: 0 buspirone 10 mg tablet 10 mg PO BID RF: 0 albuterol sulfate [Ventolin HFA] 90 mcg/actuation HFA aerosol inhaler 2 puffs INH Q4H PRN (Reason: shortness of breath or wheezing) RF: 0 B-complex with vitamin C tablet 1 tab PO DAILY RF: 0 ascorbic acid (vitamin C) 1,000 mg tablet 500 mg PO DAILY RF: 0 Linzess 145 mcg capsule 145 mcg PO QAM Qty: 90 RF: 3 sertraline 100 mg tablet 200 mg PO QPM RF: 0 nortriptyline 10 mg capsule 50 mg PO HS RF: 0 pantoprazole 40 mg tablet,delayed release (DR/EC) 40 mg PO HS RF: 0 Cbd Oil 1 mg PO BID RF: 0 Discontinued meloxicam 15 mg Tablet 15 mg PO DAILY RF: 0 Discharge Orders: Discharge Order (Routine); Ordered 02/15/20 Ordered By: Stephen Briggs/Other Patient Handouts: Preventing Deep Vein Thrombosis Admission Data Admit Date/Time: 02/14/20 13:59 Attending Provider: Stephen Mcgregor Admit Provider: Stephen Mcgregor Primary Care Provider: Abiola Pryor Other Interventions: Discharge Summary Assessment (RN) Last Done: 02/15/20 14:25 DC Date/Time DO NOT enter until pt leaves facility: 02/15/20 17:04
== END 2020-02-15 17:04 | disposition home health service (06) | DRG 470 ==
LOC: ASU 05:07 → 3E 13:59